=== PATIENT | male | born 2000 | race American Indian/Alaskan Native ===

== ENCOUNTER 2020-12-29 22:08 | Inpatient (IN) | payer SELFPAY ==
[2020-12-29] MEDS: LORazepam 2 MG/ML VIAL IV PRN ×2 (22:08→22:58)
[2020-12-29] MEDS ORDERED: SODIUM CHLORIDE 0.9% 1000 ML 1,000 ML IV ONE ×2 (22:18→22:25)
[2020-12-29] MEDS ORDERED: MINERAL OIL/PETROLATUM, WHITE OPHTH OINT 3.5 GM OU PRN (22:19)
[2020-12-29] MEDS ORDERED: LIP THERAPY VASELINE TP PRN (22:19)
--- NOTE | 2020-12-29 22:22 | Emergency Department Report ---
ED Altered Mental Status HPI - General Chief Complaint: Altered Mental Status Stated Complaint: UNRESPONSIVE PUI?: No Time Seen by Provider: 12/29/20 22:08 Source: EMS Mode of arrival: Stretcher Limitations: Altered Mental Status, Physical Limitation - History of Present Illness Initial Comments: Patient is a 20-year-old male presents emergency room for unresponsiveness and altered mental status. Patient found down at [facility]. Patient has been unresponsive. EMS brought the patient to the hospital. EMS report received. E MS states that the patient was given Narcan. Patient has been unresponsive the entire time. Patient had projectile vomiting and EMS gave the patient Zofran. EMS started an IV. Patient vascular history is unknown. MD Complaint: decreased responsiveness -: Sudden Severity: severe Consistency of Symptoms: constant Treatments Prior to Arrival: other pre-hosp med - Related Data Allergies Allergy/AdvReac Type Severity Reaction Status Date / Time No Known Allergies Allergy Unverified 12/30/20 05:25 ED Review of Systems ROS: Stated complaint: UNRESPONSIVE Other details as noted in HPI Comment: Unobtainable due to pts medical conditions ED Past Medical Hx - Past Medical History Previous Medical History?: No - Surgical History Past Surgical History?: No - Family History Family history: no significant - Social History Smoking Status: Unknown if ever smoked Substance Use Type: None ED Physical Exam - General Limitations: Altered Mental Status, Physical Limitation General appearance: obtunded - Head Head exam: Present: atraumatic, normocephalic - Eye Eye exam: Present: normal appearance, PERRL Pupils: Present: normal accommodation - ENT ENT exam: Present: mucous membranes dry - Neck Neck exam: Present: normal inspection - Respiratory Respiratory exam: Present: normal lung sounds bilaterally. Absent: respiratory distress, wheezes, rales - Cardiovascular Cardiovascular Exam: Present: regular rate, normal rhythm. Absent: systolic murmur, diastolic murmur, rubs, gallop - GI/Abdominal GI/Abdominal exam: Present: soft, normal bowel sounds - Rectal Rectal exam: Present: deferred - Extremities Exam Extremities exam: Present: normal inspection - Back Exam Back exam: Present: normal inspection - Neurological Exam Neurological exam: Present: altered - Expanded Neurological Exam Expanded Best Eye Response ([place]): (1) no response Best Motor Response ([place]): (1) no motor response Best Verbal Response ([place]): (1) no verbal response Diana Total: 3 - Skin Skin exam: Present: warm, dry, intact, normal color. Absent: rash - Assessment Assessment Interval: Baseline - Level of Consciousness 1a. Level of Consciousness: coma/unresponsive - LOC Questions 1b. LOC Questions: answers no questions correctly - LOC Command 1c. LOC Commands: performs no tasks correctly - Best Gaze 2. Best Gaze: normal - Visual 3. Visual: no visual loss - Facial Palsy 4. Facial Palsy: normal symmetrical movement - Motor Arm 5a. Motor Arm Left: no movement 5b. Motor Arm Right: no movement - Motor Leg 6a. Motor Leg Left: no movement 6b. Motor Leg Right: no movement - Limb Ataxia 7. Limb Ataxia: absent - Sensory 8. Sensory: coma/unresponsive - Best Language 9. Best Language: coma/unresponsive - Dysarthria 10. Dysarthria: intubated or other barrier - Extinction and Inattention 11. Extinction/Inattention: no abnormality - Scoring Total Score: 28 Stroke Severity: Severe Stroke ED Course Vital Signs 12/29/20 12/29/20 12/29/20 22:15 22:21 22:30 Temperature Pulse Rate 93 H 93 H Respiratory 22 Rate Blood Pressure 134/84 118/72 118/72 O2 Sat by Pulse 100 96 100 Oximetry 12/29/20 12/29/20 12/29/20 22:45 23:37 23:54 Temperature Pulse Rate 86 91 H 82 Respiratory 21 16 Rate Blood Pressure 133/92 98/46 133/92 O2 Sat by Pulse 100 100 Oximetry 12/30/20 12/30/20 12/30/20 00:00 00:15 00:30 Temperature Pulse Rate 85 64 59 L Respiratory 22 22 22 Rate Blood Pressure 138/92 136/94 136/94 O2 Sat by Pulse 100 100 100 Oximetry 12/30/20 12/30/20 12/30/20 00:45 01:00 01:16 Temperature Pulse Rate 58 L 55 L 77 Respiratory 21 21 13 Rate Blood Pressure 138/98 138/98 137/99 O2 Sat by Pulse 100 100 100 Oximetry 12/30/20 12/30/20 12/30/20 01:31 01:45 02:01 Temperature Pulse Rate 54 L 52 L 51 L Respiratory 13 17 18 Rate Blood Pressure 136/94 137/99 139/96 O2 Sat by Pulse 100 100 100 Oximetry 12/30/20 12/30/20 12/30/20 02:15 02:31 02:45 Temperature Pulse Rate 52 L 53 L 53 L Respiratory 22 21 22 Rate Blood Pressure 137/94 135/94 135/96 O2 Sat by Pulse 100 100 100 Oximetry 12/30/20 12/30/20 12/30/20 03:01 03:15 03:31 Temperature Pulse Rate 51 L 52 L 53 L Respiratory 19 22 21 Rate Blood Pressure 135/95 135/90 134/94 O2 Sat by Pulse 100 100 100 Oximetry 12/30/20 12/30/20 12/30/20 03:45 04:01 04:05 Temperature Pulse Rate 72 70 69 Respiratory 21 22 Rate Blood Pressure 135/91 121/67 121/67 O2 Sat by Pulse 100 100 100 Oximetry 12/30/20 12/30/20 12/30/20 04:15 04:31 04:45 Temperature Pulse Rate 66 65 64 Respiratory 22 21 22 Rate Blood Pressure 128/85 133/86 129/86 O2 Sat by Pulse 100 100 100 Oximetry 12/30/20 12/30/20 12/30/20 05:01 05:15 05:18 Temperature Pulse Rate 63 62 Respiratory 22 22 Rate Blood Pressure 127/82 127/87 O2 Sat by Pulse 100 100 100 Oximetry 12/30/20 12/30/20 12/30/20 05:31 05:45 05:49 Temperature 98.9 F Pulse Rate 61 61 77 Respiratory 22 21 Rate Blood Pressure 128/86 133/92 O2 Sat by Pulse 100 100 Oximetry - Reevaluation(s) Reevaluation #1: Report received from EMS. EMS is unresponsive and the patient's GCS is low. Patient will be intubated to protect the airway. See procedure note for intubation. 12/29/20 22:10 Reevaluation #2: Patient intubated without difficulty. 12/29/20 22:18 1 Reevaluation #3: Patient resting comfortably in bed. Patient stable on vent. Patient vital signs are reassuring. Patient has bilateral breath sounds. 12/29/20 22:38 Reevaluation #4: Patient still on ventilator. Patient on Ativan drip. Patient well sedated. Patient's vital signs are reassuring. 12/29/20 23:01 Reevaluation #5: I discussed the case with family. Family updated on the case. Mother and father states that the patient been having some mental issues. Mother states that the patient broke up with his girlfriend recently and also started cutting his wrist. 12/29/20 23:31 - Consultations Consultation #1: Hospitalist consulted for admission. Hospitalist to admit patient. 12/29/20 23:31 Consultation #2: Critical care consulted. 12/29/20 23:33 - Intubation Time Out Performed: Yes Sedative: Etomidate Paralytic: Rocuronium Laryngoscope: fiberoptic video scope Size: 4 Assist Device Used: fiberoptic device ET Tube Size: 7.5 Tube Secured Depth (cm): 22 Tube Secured Location: teeth Tube Placement Confirmation: visualized tube passing t, equal breath sounds bilat, no breath sounds over epi, confirmation by capnometr Patient Tolerated Procedure: well, no complications Intubation Complications: none - Lab Data Result diagrams: 12/29/20 22:22 12/29/20 22:22 Lab Results 12/29/20 12/29/20 12/29/20 Range/Units 22:22 22:22 22:22 WBC 8.2 (4.5-11.0) K/mm3 RBC 4.72 (3.65-5.03) M/mm3 Hgb 14.8 (11.8-15.2) gm/dl Hct 43.9 (35.5-45.6) % MCV 93 (84-94) fl MCH 31 (28-32) pg MCHC 34 (32-34) % RDW 12.7 L (13.2-15.2) % Plt Count 219 (140-440) K/mm3 Lymph % (Auto) 41.6 H (13.4-35.0) % Gaines % (Auto) 8.2 H (0.0-7.3) % Eos % (Auto) 2.0 (0.0-4.3) % Baso % (Auto) 0.8 (0.0-1.8) % Lymph # (Auto) 3.4 (1.2-5.4) K/mm3 Gaines # (Auto) 0.7 (0.0-0.8) K/mm3 Eos # (Auto) 0.2 (0.0-0.4) K/mm3 Baso # (Auto) 0.1 (0.0-0.1) K/mm3 Seg Neutrophils % 47.4 (40.0-70.0) % Seg Neutrophils # 3.9 (1.8-7.7) K/mm3 PT 14.0 (12.2-14.9) Sec. INR 0.97 (0.87-1.13) APTT 25.7 (24.2-36.6) Sec. ABG pH (7.350-7.450) pH Units ABG pCO2 mm Hg ABG pO2 (80.0-90.0) mm Hg ABG HCO3 (20.0-26.0) mmol/L ABG O2 Saturation (95.0-99.0) % ABG O2 Content (0.0-44) ABG Base Excess (-2.0-3.0) mmol/L ABG Hemoglobin (14.0-18.0) gm/dl ABG Carboxyhemoglobin (0.0-5.0) % ABG Methemoglobin (0.0-1.5) % Oxyhemoglobin (95.0-99.0) % FiO2 % Sodium 139 (137-145) mmol/L Potassium 3.6 (3.6-5.0) mmol/L Chloride 102.5 (98-107) mmol/L Carbon Dioxide 22 (22-30) mmol/L Anion Gap 18 mmol/L BUN 10 (9-20) mg/dL Creatinine 1.2 (0.8-1.3) mg/dL Estimated GFR > 60 ml/min BUN/Creatinine Ratio 8 % Glucose 149 H (75-100) mg/dL Lactic Acid (0.7-2.0) mmol/L Calcium 8.9 (8.4-10.2) mg/dL Total Bilirubin 0.30 (0.1-1.2) mg/dL AST 20 (5-40) units/L ALT 14 (7-56) units/L Alkaline Phosphatase 71 (35-129) units/L Ammonia (25-60) umol/L Total Creatine Kinase 235 H (55-170) units/L Troponin T < 0.010 (0.00-0.029) ng/mL Total Protein 7.3 (6.3-8.2) g/dL Albumin 4.4 (3.9-5) g/dL Albumin/Globulin Ratio 1.5 % Urine Color (Yellow) Urine Turbidity (Clear) Urine pH (5.0-7.0) Ur Specific [place] (1.003-1.030) Urine Protein (Negative) mg/dL Urine Glucose (UA) (Negative) mg/dL Urine Ketones (Negative) mg/dL Urine Blood (Negative) Urine Nitrite (Negative) Urine Bilirubin (Negative) Urine Urobilinogen (<2.0) mg/dL Ur Leukocyte Esterase (Negative) Urine WBC (Auto) (0.0-6.0) /HPF Urine RBC (Auto) (0.0-6.0) /HPF Urine Mucus /HPF Salicylates (2.8-20.0) mg/dL Urine Opiates Screen Urine Methadone Screen Acetaminophen (10.0-30.0) ug/mL Ur Barbiturates Screen Ur Phencyclidine Scrn Ur Amphetamines Screen U Benzodiazepines Scrn Urine Cocaine Screen U Marijuana (THC) Screen Drugs of Abuse Note Plasma/Serum Alcohol (0-0.07) % 12/29/20 12/29/20 12/29/20 Range/Units 22:22 22:22 22:22 WBC (4.5-11.0) K/mm3 RBC (3.65-5.03) M/mm3 Hgb (11.8-15.2) gm/dl Hct (35.5-45.6) % MCV (84-94) fl MCH (28-32) pg MCHC (32-34) % RDW (13.2-15.2) % Plt Count (140-440) K/mm3 Lymph % (Auto) (13.4-35.0) % Gaines % (Auto) (0.0-7.3) % Eos % (Auto) (0.0-4.3) % Baso % (Auto) (0.0-1.8) % Lymph # (Auto) (1.2-5.4) K/mm3 Gaines # (Auto) (0.0-0.8) K/mm3 Eos # (Auto) (0.0-0.4) K/mm3 Baso # (Auto) (0.0-0.1) K/mm3 Seg Neutrophils % (40.0-70.0) % Seg Neutrophils # (1.8-7.7) K/mm3 PT (12.2-14.9) Sec. INR (0.87-1.13) APTT (24.2-36.6) Sec. ABG pH (7.350-7.450) pH Units ABG pCO2 mm Hg ABG pO2 (80.0-90.0) mm Hg ABG HCO3 (20.0-26.0) mmol/L ABG O2 Saturation (95.0-99.0) % ABG O2 Content (0.0-44) ABG Base Excess (-2.0-3.0) mmol/L ABG Hemoglobin (14.0-18.0) gm/dl ABG Carboxyhemoglobin (0.0-5.0) % ABG Methemoglobin (0.0-1.5) % Oxyhemoglobin (95.0-99.0) % FiO2 % Sodium (137-145) mmol/L Potassium (3.6-5.0) mmol/L Chloride (98-107) mmol/L Carbon Dioxide (22-30) mmol/L Anion Gap mmol/L BUN (9-20) mg/dL Creatinine (0.8-1.3) mg/dL Estimated GFR ml/min BUN/Creatinine Ratio % Glucose (75-100) mg/dL Lactic Acid 3.20 H* (0.7-2.0) mmol/L Calcium (8.4-10.2) mg/dL Total Bilirubin (0.1-1.2) mg/dL AST (5-40) units/L ALT (7-56) units/L Alkaline Phosphatase (35-129) units/L Ammonia 36.0 (25-60) umol/L Total Creatine Kinase (55-170) units/L Troponin T (0.00-0.029) ng/mL Total Protein (6.3-8.2) g/dL Albumin (3.9-5) g/dL Albumin/Globulin Ratio % Urine Color (Yellow) Urine Turbidity (Clear) Urine pH (5.0-7.0) Ur Specific [place] (1.003-1.030) Urine Protein (Negative) mg/dL Urine Glucose (UA) (Negative) mg/dL Urine Ketones (Negative) mg/dL Urine Blood (Negative) Urine Nitrite (Negative) Urine Bilirubin (Negative) Urine Urobilinogen (<2.0) mg/dL Ur Leukocyte Esterase (Negative) Urine WBC (Auto) (0.0-6.0) /HPF Urine RBC (Auto) (0.0-6.0) /HPF Urine Mucus /HPF Salicylates < 0.3 L (2.8-20.0) mg/dL Urine Opiates Screen Urine Methadone Screen Acetaminophen (10.0-30.0) ug/mL Ur Barbiturates Screen Ur Phencyclidine Scrn Ur Amphetamines Screen U Benzodiazepines Scrn Urine Cocaine Screen U Marijuana (THC) Screen Drugs of Abuse Note Plasma/Serum Alcohol (0-0.07) % 12/29/20 12/29/20 12/29/20 Range/Units 22:22 22:22 22:55 WBC (4.5-11.0) K/mm3 RBC (3.65-5.03) M/mm3 Hgb (11.8-15.2) gm/dl Hct (35.5-45.6) % MCV (84-94) fl MCH (28-32) pg MCHC (32-34) % RDW (13.2-15.2) % Plt Count (140-440) K/mm3 Lymph % (Auto) (13.4-35.0) % Gaines % (Auto) (0.0-7.3) % Eos % (Auto) (0.0-4.3) % Baso % (Auto) (0.0-1.8) % Lymph # (Auto) (1.2-5.4) K/mm3 Gaines # (Auto) (0.0-0.8) K/mm3 Eos # (Auto) (0.0-0.4) K/mm3 Baso # (Auto) (0.0-0.1) K/mm3 Seg Neutrophils % (40.0-70.0) % Seg Neutrophils # (1.8-7.7) K/mm3 PT (12.2-14.9) Sec. INR (0.87-1.13) APTT (24.2-36.6) Sec. ABG pH (7.350-7.450) pH Units ABG pCO2 mm Hg ABG pO2 (80.0-90.0) mm Hg ABG HCO3 (20.0-26.0) mmol/L ABG O2 Saturation (95.0-99.0) % ABG O2 Content (0.0-44) ABG Base Excess (-2.0-3.0) mmol/L ABG Hemoglobin (14.0-18.0) gm/dl ABG Carboxyhemoglobin (0.0-5.0) % ABG Methemoglobin (0.0-1.5) % Oxyhemoglobin (95.0-99.0) % FiO2 % Sodium (137-145) mmol/L Potassium (3.6-5.0) mmol/L Chloride (98-107) mmol/L Carbon Dioxide (22-30) mmol/L Anion Gap mmol/L BUN (9-20) mg/dL Creatinine (0.8-1.3) mg/dL Estimated GFR ml/min BUN/Creatinine Ratio % Glucose (75-100) mg/dL Lactic Acid (0.7-2.0) mmol/L Calcium (8.4-10.2) mg/dL Total Bilirubin (0.1-1.2) mg/dL AST (5-40) units/L ALT (7-56) units/L Alkaline Phosphatase (35-129) units/L Ammonia (25-60) umol/L Total Creatine Kinase (55-170) units/L Troponin T (0.00-0.029) ng/mL Total Protein (6.3-8.2) g/dL Albumin (3.9-5) g/dL Albumin/Globulin Ratio % Urine Color (Yellow) Urine Turbidity (Clear) Urine pH (5.0-7.0) Ur Specific [place] (1.003-1.030) Urine Protein (Negative) mg/dL Urine Glucose (UA) (Negative) mg/dL Urine Ketones (Negative) mg/dL Urine Blood (Negative) Urine Nitrite (Negative) Urine Bilirubin (Negative) Urine Urobilinogen (<2.0) mg/dL Ur Leukocyte Esterase (Negative) Urine WBC (Auto) (0.0-6.0) /HPF Urine RBC (Auto) (0.0-6.0) /HPF Urine Mucus /HPF Salicylates (2.8-20.0) mg/dL Urine Opiates Screen Presumptive negative Urine Methadone Screen Presumptive negative Acetaminophen 5.0 L (10.0-30.0) ug/mL Ur Barbiturates Screen Presumptive negative Ur Phencyclidine Scrn Presumptive negative Ur Amphetamines Screen Presumptive negative U Benzodiazepines Scrn Presumptive negative Urine Cocaine Screen Presumptive negative U Marijuana (THC) Screen Presumptive positive Drugs of Abuse Note Disclamer Plasma/Serum Alcohol < 0.01 (0-0.07) % 12/29/20 12/29/20 12/29/20 Range/Units 23:45 23:46 Unknown WBC (4.5-11.0) K/mm3 RBC (3.65-5.03) M/mm3 Hgb (11.8-15.2) gm/dl Hct (35.5-45.6) % MCV (84-94) fl MCH (28-32) pg MCHC (32-34) % RDW (13.2-15.2) % Plt Count (140-440) K/mm3 Lymph % (Auto) (13.4-35.0) % Gaines % (Auto) (0.0-7.3) % Eos % (Auto) (0.0-4.3) % Baso % (Auto) (0.0-1.8) % Lymph # (Auto) (1.2-5.4) K/mm3 Gaines # (Auto) (0.0-0.8) K/mm3 Eos # (Auto) (0.0-0.4) K/mm3 Baso # (Auto) (0.0-0.1) K/mm3 Seg Neutrophils % (40.0-70.0) % Seg Neutrophils # (1.8-7.7) K/mm3 PT (12.2-14.9) Sec. INR (0.87-1.13) APTT (24.2-36.6) Sec. ABG pH 7.454 H (7.350-7.450) pH Units ABG pCO2 29.9 mm Hg ABG pO2 257.0 H (80.0-90.0) mm Hg ABG HCO3 20.5 (20.0-26.0) mmol/L ABG O2 Saturation 99.4 H (95.0-99.0) % ABG O2 Content 18.8 (0.0-44) ABG Base Excess -2.4 L (-2.0-3.0) mmol/L ABG Hemoglobin 13.2 L (14.0-18.0) gm/dl ABG Carboxyhemoglobin 0.9 (0.0-5.0) % ABG Methemoglobin 0.7 (0.0-1.5) % Oxyhemoglobin 97.8 (95.0-99.0) % FiO2 30 % Sodium (137-145) mmol/L Potassium (3.6-5.0) mmol/L Chloride (98-107) mmol/L Carbon Dioxide (22-30) mmol/L Anion Gap mmol/L BUN (9-20) mg/dL Creatinine (0.8-1.3) mg/dL Estimated GFR ml/min BUN/Creatinine Ratio % Glucose (75-100) mg/dL Lactic Acid 4.60 H* (0.7-2.0) mmol/L Calcium (8.4-10.2) mg/dL Total Bilirubin (0.1-1.2) mg/dL AST (5-40) units/L ALT (7-56) units/L Alkaline Phosphatase (35-129) units/L Ammonia (25-60) umol/L Total Creatine Kinase (55-170) units/L Troponin T (0.00-0.029) ng/mL Total Protein (6.3-8.2) g/dL Albumin (3.9-5) g/dL Albumin/Globulin Ratio % Urine Color Yellow (Yellow) Urine Turbidity Clear (Clear) Urine pH 6.0 (5.0-7.0) Ur Specific [place] 1.025 (1.003-1.030) Urine Protein <15 mg/dl (Negative) mg/dL Urine Glucose (UA) Neg (Negative) mg/dL Urine Ketones Neg (Negative) mg/dL Urine Blood Neg (Negative) Urine Nitrite Neg (Negative) Urine Bilirubin Neg (Negative) Urine Urobilinogen 4.0 (<2.0) mg/dL Ur Leukocyte Esterase Neg (Negative) Urine WBC (Auto) < 1.0 (0.0-6.0) /HPF Urine RBC (Auto) 1.0 (0.0-6.0) /HPF Urine Mucus Few /HPF Salicylates (2.8-20.0) mg/dL Urine Opiates Screen Urine Methadone Screen Acetaminophen (10.0-30.0) ug/mL Ur Barbiturates Screen Ur Phencyclidine Scrn Ur Amphetamines Screen U Benzodiazepines Scrn Urine Cocaine Screen U Marijuana (THC) Screen Drugs of Abuse Note Plasma/Serum Alcohol (0-0.07) % - EKG Data -: EKG Interpreted by Me EKG shows normal: sinus rhythm, axis, intervals, QRS complexes, ST-T waves Rate: normal - Radiology Data Radiology results: report reviewed, image reviewed interpreted by me: Chest x-ray: No pneumonia, no pneumothorax, no osseous findings, ET tube in satisfactory position. CHEST 1 VIEW 12/29/2020 9:38 PM INDICATION / CLINICAL INFORMATION: ETT placement. COMPARISON: None available. FINDINGS: SUPPORT DEVICES: ET tube has tip 6 cm above mery HEART / MEDIASTINUM: No significant abnormality. LUNGS / PLEURA: No significant pulmonary or pleural abnormality. No pneumothorax. ADDITIONAL FINDINGS: No significant additional findings. IMPRESSION: 1. No acute findings. CT HEAD WITHOUT CONTRAST INDICATION / CLINICAL INFORMATION: Altered Mental Status. TECHNIQUE: All CT scans at this location are performed using CT dose reduction for ALARA by means of automated exposure control. COMPARISON: None available. FINDINGS: HEMORRHAGE: None. EXTRA-AXIAL SPACES: Normal in size and morphology for the patient's age. VENTRICULAR SYSTEM: Normal in size and morphology for the patient's age. CEREBRAL PARENCHYMA: No significant abnormality. No acute territorial infarct. MIDLINE SHIFT OR HERNIATION: None. CEREBELLUM / BRAINSTEM: No significant abnormality. ORBITS: Normal as visualized. SOFT TISSUES of HEAD: No significant abnormality. CALVARIUM: No significant abnormality. PARANASAL SINUSES / MASTOID AIR CELLS: Normal as visualized. ADDITIONAL FINDINGS: None. IMPRESSION: 1. No acute intracranial abnormality. - Medical Decision Making Patient is a 20-year-old male who presents emergency room for altered mental status and possible overdose. Patient brought in by EMS. Patient was given Narcan by EMS with no response. Patient had projectile vomiting with EMS and given Zofran. Patient's GCS was 3 on initial evaluation. Patient was intubated to protect the patient's airway and oxygen support. See procedure note. Patient was intubated without difficulty. Patient was intubated with 1 attempt. Patient had labs done. Patient had a chest x-ray done. Patient chest x-ray shows normal lung corona and ET tube in satisfactory position. I personally reviewed the EKG. Patient had a chest x-ray which was normal and shows no acute findings. Patient's EKG shows a normal sinus rhythm. I personally reviewed the EKG. Patient's labs are essentially unremarkable. Patient given IV fluids after initial evaluation. Patient is afebrile and non-tachycardic. Patient placed on a Ativan drip after intubation. Patient had a head CT for altered mental status. Patient's head CT was negative for acute findings. Patient admitted to the hospital service for further evaluation and treatment. Patient admitted to the ICU. Critical care time documented due to the multiple reassessments, prolonged time at the bedside, interpretation of diagnostics and labs. - Differential Diagnosis Overdose, altered mental status, intracranial hemorrhage, Critical Care Time: Yes Critical care time in (mins) excluding proc time.: 45 Critical care attestation.: If time is entered above; I have spent that time in minutes in the direct care of this critically ill patient, excluding procedure time. Critical Care Time: 45 minutes ED Disposition Clinical Impression: Unresponsiveness, Lactic acid acidosis Respiratory failure Qualifiers: Chronicity: acute Respiratory failure complication: hypoxia Qualified Code(s): J96.01 - Acute respiratory failure with hypoxia Altered mental status Qualifiers: Altered mental status type: unspecified Qualified Code(s): R41.82 - Altered mental status, unspecified Disposition: ADMITTED INPATIENT Is pt being admited?: Yes Does the pt Need Aspirin: No Condition: Critical Time of Disposition: 00:14
[2020-12-29 22:32] LABS: Basophils # (Auto) 0.1 K/mm3 (0.0-0.1); Basophils % (Auto) 0.8 % (0.0-1.8); Eosinophils # (Auto) 0.2 K/mm3 (0.0-0.4); Hematocrit 43.9 % (35.5-45.6); Hemoglobin 14.8 gm/dl (11.8-15.2); Lymphocytes # (Auto) 3.4 K/mm3 (1.2-5.4); Lymphocytes % (Auto) 41.6 % (13.4-35.0); Mean Corpuscular HGB Conc 34 % (32-34); Mean Corpuscular Volume 93 fl (84-94); Monocytes # (Auto) 0.7 K/mm3 (0.0-0.8); Monocytes % (Auto) 8.2 % (0.0-7.3); Platelet Count 219 K/mm3 (140-440); Red Blood Count 4.72 M/mm3 (3.65-5.03); Red Cell Distribution Width 12.7 % (13.2-15.2)
[2020-12-29 22:43] LABS: INR 0.97 (0.87-1.13)
[2020-12-29 22:44] LABS: Partial Thromboplastin Time 25.7 Sec. (24.2-36.6)
--- NOTE | 2020-12-29 22:44 | XRay Report ---
CHEST 1 VIEW 12/29/2020 9:38 PM INDICATION / CLINICAL INFORMATION: ETT placement. COMPARISON: None available. FINDINGS: SUPPORT DEVICES: ET tube has tip 6 cm above mery HEART / MEDIASTINUM: No significant abnormality. LUNGS / PLEURA: No significant pulmonary or pleural abnormality. No pneumothorax. ADDITIONAL FINDINGS: No significant additional findings. IMPRESSION: 1. No acute findings. Signer Name: Manuel Costa MD Signed: 12/29/2020 10:40 PM Workstation Name: [id number]
[2020-12-29 22:58] LABS: Alanine Aminotransferase 14 units/L (7-56); Albumin 4.4 g/dL (3.9-5); BUN/Creatinine Ratio 8; Blood Urea Nitrogen 10 mg/dL (9-20); Calcium 8.9 mg/dL (8.4-10.2); Hemolysis Index 19
[2020-12-29] MEDS ORDERED: LORazepam 100 MG in SODIUM CHLORIDE 0.9% 50 ML, EMPTY BAG 0 ML IV SCH (23:00)
[2020-12-29 23:04] LABS: Bilirubin,Urine NEG (Negative); Blood,Urine NEG (Negative); Color,Urine Yellow (Yellow); Mucus,Urine FEW /HPF; Protein,Urine <15 mg/dL mg/dL (Negative); WBC,Urine < 1.0 /HPF (0.0-6.0)
[2020-12-29 23:12] LABS: Amphetamine Screen,Urine PRESUMPTIVE NEGATIVE; Benzodiazepines Screen,Urine PRESUMPTIVE NEGATIVE; Cannabinoid Screen,Urine PRESUMPTIVE POSITIVE; Cocaine Screen,Urine PRESUMPTIVE NEGATIVE; Methadone Screen,Urine PRESUMPTIVE NEGATIVE; Opiate Screen,Urine PRESUMPTIVE NEGATIVE
--- NOTE | 2020-12-29 23:32 | Cat Scan Report ---
CT HEAD WITHOUT CONTRAST INDICATION / CLINICAL INFORMATION: Altered Mental Status. TECHNIQUE: All CT scans at this location are performed using CT dose reduction for ALARA by means of automated e xposure control. COMPARISON: None available. FINDINGS: HEMORRHAGE: None. EXTRA-AXIAL SPACES: Normal in size and morphology for the patient's age. VENTRICULAR SYSTEM: Normal in size and morphology for the patient's age. CEREBRAL PARENCHYMA: No significant abnormality. No acute territorial infarct. MIDLINE SHIFT OR HERNIATION: None. CEREBELLUM / BRAINSTEM: No significant abnormality. ORBITS: Normal as visualized. SOFT TISSUES of HEAD: No significant abnormality. CALVARIUM: No significant abnormality. PARANASAL SINUSES / MASTOID AIR CELLS: Normal as visualized. ADDITIONAL FINDINGS: None. IMPRESSION: 1. No acute intracranial abnormality. Signer Name: Manuel Costa MD Signed: 12/29/2020 11:28 PM Workstation Name: [id number]
[2020-12-29 23:58] LABS: ABG Base Excess -2.4 mmol/L (-2.0-3.0); ABG HCO3 20.5 mmol/L (20.0-26.0); ABG Methemoglobin 0.7 % (0.0-1.5); ABG Oxygen Saturation 99.4 % (95.0-99.0); ABG PCO2 29.9 mm Hg; ABG PH 7.454 pH Units (7.350-7.450)
[2020-12-30] MEDS ORDERED: ROCURONIUM 50 MG/5 ML INJ IV ONE (00:24)
[2020-12-30] MEDS ORDERED: ETOMIDATE 20 MG/10 ML INJ IV ONE (00:24)
[2020-12-30] MEDS ORDERED: MIDAZOLAM 5 MG/5 ML INJ MDV IV ONE (00:24)
[2020-12-30] MEDS ORDERED: ACETAMINOPHEN 650 MG RECT SUPP PR PRN (01:11)
[2020-12-30] MEDS ORDERED: MAGNESIUM HYDROXIDE (MOM) ORAL LIQD UDC PO PRN (01:11)
[2020-12-30] MEDS ORDERED: MORPHINE 2 MG/1 ML INJ IV PRN (01:11)
[2020-12-30] MEDS ORDERED: MORPHINE 4 MG/1 ML INJ IV PRN (01:11)
--- NOTE | 2020-12-30 01:21 | History and Physical Report ---
History of Present Illness Date of examination: 12/30/20 Date of admission: 12/30/2020 Chief complaint: Altered mental status History of present illness: 20-year-old -Cub[place] male brought into the emergency room by EMS for unresponsiveness and altered mental status having been found down at the [facility]. Patient was said to have been given some Narcan in route to the hospital without any good response. He was said to have had some projectile vomiting and was given Zofran. Most of the history was gotten from the ER staff as family has patient had already been intubated. Information later gathered from family by ER statff indicates that patient has known history of depression and also had some suicidal ideations lately. Work-up in the emergency room today toxicology reveals marijuana. Chemistry reveals lactic acidosis of 4.6 CT scan of the head and chest x-ray were unremarkable. Past History Past Medical History: other (History of mental illness) Past Surgical History: Other (Unknown) Social history: other (Unknown) Medications and Allergies Allergies Allergy/AdvReac Type Severity Reaction Status Date / Time No Known Allergies Allergy Unverified 12/30/20 05:25 Active Meds: Active Medications Acetaminophen (Acetaminophen 650 Mg Rect Supp) 650 mg DC Q6H PRN PRN Reason: Pain MILD(1-3)/Fever >100.5/CHAVARRIA Heparin Sodium (Porcine) (Heparin 5,000 Unit/1 Ml Vial) 5,000 unit SUB-Q Q8HR LUZ Hydrophilic Ointment (Lip Therapy Vaseline) 1 applic TP Q2HR PRN PRN Reason: Dry Lips Lorazepam 100 mg/ Sodium Chloride/ Miscellaneous Information 100 mls @ 1 mls/hr IV TITR LUZ; Protocol Last Admin: 12/29/20 23:10 Dose: 1 mg/hr, 1 mls/hr Documented by: Propofol (Diprivan 10 Mg/Ml) 1,000 mg in 100 mls @ 2.34 mls/hr IV TITR LUZ; Protocol Last Admin: 12/29/20 23:55 Dose: 5 mcg/kg/min, 2.34 mls/hr Documented by: Sodium Chloride (Nacl 0.9% 1000 Ml) 1,000 mls @ 125 mls/hr IV DIRECT LUZ Lorazepam (Lorazepam 2 Mg/Ml Vial) 2 mg IV Q10MIN PRN PRN Reason: Agitation Last Admin: 12/29/20 22:08 Dose: 2 mg Documented by: Magnesium Hydroxide (Magnesium Hydroxide (Mom) Oral Liqd Udc) 30 ml PO Q4H PRN PRN Reason: Constipation Morphine Sulfate (Morphine 2 Mg/1 Ml Inj) 2 mg IV Q4H PRN PRN Reason: Pain, Moderate (4-6) Morphine Sulfate (Morphine 4 Mg/1 Ml Inj) 4 mg IV Q4H PRN PRN Reason: Pain , Severe (7-10) Multi-Ingred Cream/Lotion/Oil/Oint (Mineral Oil/Petrolatum, White Ophth Oint 3.5 Gm) 1 applic OU Q4HR PRN PRN Reason: Dry Eye(s) Sodium Chloride (Sodium Chloride 0.9% 10 Ml Flush Syringe) 10 ml IV BID LUZ Sodium Chloride (Sodium Chloride 0.9% 10 Ml Flush Syringe) 10 ml IV PRN PRN PRN Reason: LINE FLUSH Review of Systems ROS unobtainable: due to endotracheal tube Exam - Constitutional Vitals: Temp Pulse Resp BP Pulse Ox 91 H 98/46 100 12/29/20 23:37 12/29/20 23:37 12/29/20 23:37 General appearance: Present: well-nourished, other (Currently intubated and sedated) - EENT Eyes: Present: PERRL, EOM intact. Absent: scleral icterus ENT: hearing intact, clear oral mucosa, dentition normal - Neck Neck: Present: supple, normal ROM - Respiratory Respiratory effort: normal Respiratory: bilateral: CTA - Cardiovascular Rhythm: regular Heart Sounds: Present: S1 & S2. Absent: gallop, systolic murmur, diastolic murmur, rub, click - Extremities Extremities: no ischemia, pulses intact, pulses symmetrical, No edema, normal temperature, normal color, Full ROM Peripheral Pulses: within normal limits - Abdominal General gastrointestinal: Present: soft, non-tender, non-distended, normal bowel sounds. Absent: mass - Integumentary Integumentary: Present: clear, warm, dry, normal turgor. Absent: rash - Musculoskeletal Musculoskeletal: strength equal bilaterally - Psychiatric Psychiatric: cooperative - Neurologic Neurologic: CNII-XII intact, no focal deficits, moves all extremities, other (Currently intubated) HEART Score - HEART Score Troponin: Troponin T < 0.010 ng/mL (0.00-0.029) 12/29/20 22:22 Results - Labs CBC & Chem 7: 12/29/20 22:22 12/29/20 22:22 Labs: Abnormal lab results 12/29/20 12/29/20 12/29/20 Range/Units 22:22 22:22 22:22 RDW 12.7 L (13.2-15.2) % Lymph % (Auto) 41.6 H (13.4-35.0) % [place] % (Auto) 8.2 H (0.0-7.3) % ABG pH (7.350-7.450) pH Units ABG pO2 (80.0-90.0) mm Hg ABG O2 Saturation (95.0-99.0) % ABG Base Excess (-2.0-3.0) mmol/L ABG Hemoglobin (14.0-18.0) gm/dl Glucose 149 H (75-100) mg/dL Lactic Acid 3.20 H* (0.7-2.0) mmol/L Total Creatine Kinase 235 H (55-170) units/L Salicylates (2.8-20.0) mg/dL Acetaminophen (10.0-30.0) ug/mL 12/29/20 12/29/20 12/29/20 Range/Units 22:22 22:22 23:45 RDW (13.2-15.2) % Lymph % (Auto) (13.4-35.0) % [place] % (Auto) (0.0-7.3) % ABG pH 7.454 H (7.350-7.450) pH Units ABG pO2 257.0 H (80.0-90.0) mm Hg ABG O2 Saturation 99.4 H (95.0-99.0) % ABG Base Excess -2.4 L (-2.0-3.0) mmol/L ABG Hemoglobin 13.2 L (14.0-18.0) gm/dl Glucose (75-100) mg/dL Lactic Acid (0.7-2.0) mmol/L Total Creatine Kinase (55-170) units/L Salicylates < 0.3 L (2.8-20.0) mg/dL Acetaminophen 5.0 L (10.0-30.0) ug/mL 12/29/20 Range/Units 23:46 RDW (13.2-15.2) % Lymph % (Auto) (13.4-35.0) % [place] % (Auto) (0.0-7.3) % ABG pH (7.350-7.450) pH Units ABG pO2 (80.0-90.0) mm Hg ABG O2 Saturation (95.0-99.0) % ABG Base Excess (-2.0-3.0) mmol/L ABG Hemoglobin (14.0-18.0) gm/dl Glucose (75-100) mg/dL Lactic Acid 4.60 H* (0.7-2.0) mmol/L Total Creatine Kinase (55-170) units/L Salicylates (2.8-20.0) mg/dL Acetaminophen (10.0-30.0) ug/mL Assessment and Plan - Patient Problems (1) Respiratory failure Current Visit: Yes Status: Acute Qualifiers: Chronicity: acute Respiratory failure complication: hypoxia Qualified Code(s): J96.01 - Acute respiratory failure with hypoxia Plan to address problem: Etiology unclear. Patient currently intubated and sedated. We await further evaluation by coordinator of genetic services. (2) Depression with suicidal ideation Current Visit: Yes Status: Acute Plan to address problem: Consult placed to mental health for evaluation. (3) Lactic acid acidosis Current Visit: Yes Status: Acute Plan to address problem: Patient placed on IV fluid. No obvious source of infection at this time. Will monitor chemistry. (4) Encephalopathy Current Visit: Yes Status: Acute Plan to address problem: Rule out metabolic or infectious process (5) DVT prophylaxis Current Visit: Yes Status: Acute Plan to address problem: Patient placed on subcutaneous heparin. (6) Full code status Current Visit: Yes Status: Acute Plan to address problem: Patient is full code.
[2020-12-30 04:41] LABS: ABG Base Excess -2.2 mmol/L (-2.0-3.0); ABG HCO3 20.2 mmol/L (20.0-26.0); ABG Methemoglobin 0.6 % (0.0-1.5); ABG Oxygen Saturation 99.2 % (95.0-99.0); ABG PCO2 28.5 mm Hg; ABG PH 7.468 pH Units (7.350-7.450); ABG PO2 173.3 mm Hg (80.0-90.0)
[2020-12-30] MEDS: HEPARIN 5,000 UNIT/1 ML VIAL SUB-Q SCH ×4 (05:37→21:40)
--- NOTE | 2020-12-30 11:57 | Event Note ---
Date: 12/30/20 Attempted to evaluate the patient. He is intubated and sedated.
--- NOTE | 2020-12-30 13:17 | Consultation ---
History of Present Illness Consult date: 12/30/20 Requesting physician: AARON DEXTER Reason for consult: other (Acute Hypoxemic Respiratory Failure on MVS) History of present illness: PCCM CONSULT NOTE (Full dictation # [id number]) Please see dictated notes for full details Past History Past Medical History: other (History of mental illness) Past Surgical History: Other (Unknown) Social history: other (Unknown) Medications and Allergies Allergies Allergy/AdvReac Type Severity Reaction Status Date / Time No Known Allergies Allergy Unverified 12/30/20 05:25 Active Meds: Active Medications Acetaminophen (Acetaminophen 650 Mg Rect Supp) 650 mg MN Q6H PRN PRN Reason: Pain MILD(1-3)/Fever >100.5/[place] Heparin Sodium (Porcine) (Heparin 5,000 Unit/1 Ml Vial) 5,000 unit SUB-Q Q8HR LUZ Last Admin: 12/30/20 06:30 Dose: 5,000 unit Documented by: Hydrophilic Ointment (Lip Therapy Vaseline) 1 applic TP Q2HR PRN PRN Reason: Dry Lips Last Admin: 12/30/20 05:32 Dose: 1 applic Documented by: Lorazepam 100 mg/ Sodium Chloride/ Miscellaneous Information 100 mls @ 1 mls/hr IV TITR LUZ; Protocol Last Admin: 12/29/20 23:10 Dose: 1 mg/hr, 1 mls/hr Documented by: Propofol (Diprivan 10 Mg/Ml) 1,000 mg in 100 mls @ 2.34 mls/hr IV TITR LUZ; Protocol Last Admin: 12/29/20 23:55 Dose: 5 mcg/kg/min, 2.34 mls/hr Documented by: Sodium Chloride (Nacl 0.9% 1000 Ml) 1,000 mls @ 125 mls/hr IV DIRECT LUZ Lorazepam (Lorazepam 2 Mg/Ml Vial) 2 mg IV Q10MIN PRN PRN Reason: Agitation Last Admin: 12/29/20 22:58 Dose: 2 mg Documented by: Magnesium Hydroxide (Magnesium Hydroxide (Mom) Oral Liqd Udc) 30 ml PO Q4H PRN PRN Reason: Constipation Morphine Sulfate (Morphine 2 Mg/1 Ml Inj) 2 mg IV Q4H PRN PRN Reason: Pain, Moderate (4-6) Morphine Sulfate (Morphine 4 Mg/1 Ml Inj) 4 mg IV Q4H PRN PRN Reason: Pain , Severe (7-10) Multi-Ingred Cream/Lotion/Oil/Oint (Mineral Oil/Petrolatum, White Ophth Oint 3.5 Gm) 1 applic OU Q4HR PRN PRN Reason: Dry Eye(s) Sodium Chloride (Sodium Chloride 0.9% 10 Ml Flush Syringe) 10 ml IV BID LUZ Sodium Chloride (Sodium Chloride 0.9% 10 Ml Flush Syringe) 10 ml IV PRN PRN PRN Reason: LINE FLUSH Physical Examination Vital signs: Vital Signs Pulse BP Pulse Ox 93 H 134/84 100 12/29/20 22:15 12/29/20 22:15 12/29/20 22:15 Results - Laboratory Findings CBC and BMP: 12/29/20 22:22 12/29/20 22:22 ABG ABG pH 7.468 pH Units (7.350-7.450) H 12/30/20 04:05 ABG pCO2 28.5 mm Hg 12/30/20 04:05 ABG pO2 173.3 mm Hg (80.0-90.0) H 12/30/20 04:05 ABG O2 Saturation 99.2 % (95.0-99.0) H 12/30/20 04:05 PT/INR, D-dimer PT 14.0 Sec. (12.2-14.9) 12/29/20 22:22 INR 0.97 (0.87-1.13) 12/29/20 22:22 Abnormal lab findings: Abnormal Labs 12/29/20 12/29/20 12/29/20 22:22 22:22 22:22 RDW 12.7 L Lymph % (Auto) 41.6 H [place] % (Auto) 8.2 H ABG pH ABG pO2 ABG O2 Saturation ABG Base Excess ABG Hemoglobin Glucose 149 H Lactic Acid 3.20 H* Total Creatine Kinase 235 H Salicylates Acetaminophen 12/29/20 12/29/20 12/29/20 22:22 22:22 23:45 RDW Lymph % (Auto) [place] % (Auto) ABG pH 7.454 H ABG pO2 257.0 H ABG O2 Saturation 99.4 H ABG Base Excess -2.4 L ABG Hemoglobin 13.2 L Glucose Lactic Acid Total Creatine Kinase Salicylates < 0.3 L Acetaminophen 5.0 L 12/29/20 12/30/20 12/30/20 23:46 03:33 04:05 RDW Lymph % (Auto) [place] % (Auto) ABG pH 7.468 H ABG pO2 173.3 H ABG O2 Saturation 99.2 H ABG Base Excess -2.2 L ABG Hemoglobin Glucose Lactic Acid 4.60 H* 3.20 H* Total Creatine Kinase Salicylates Acetaminophen
--- NOTE | 2020-12-30 13:43 | Event Note ---
Date: 12/30/20 Patient examined by me this morning. Chart was also reviewed. Patient remains mechanically intubated currently on 8 of diprivan. Lactic acidosis has resolved. Critical care to evaluate for possible extubation.
[2020-12-30 14:02] LABS: ABG Base Excess -1.6 mmol/L (-2.0-3.0); ABG HCO3 23.4 mmol/L (20.0-26.0); ABG Methemoglobin 0.8 % (0.0-1.5); ABG Oxygen Saturation 98.8 % (95.0-99.0); ABG PCO2 40.7 mm Hg; ABG PH 7.378 pH Units (7.350-7.450)
[2020-12-30] MEDS ORDERED: SODIUM BICARBONATE 325 MG TAB FEEDTUBE PRN (15:18)
[2020-12-30] MEDS ORDERED: LIPASE 10,500/PROTEASE 25,000/AMYLASE 43,750 (UNITS) DR CAP FEEDTUBE PRN (15:18)
[2020-12-30] MEDS ORDERED: SIMPLE SYRUP 15 ML FEEDTUBE PRN ×2 (15:18)
--- NOTE | 2020-12-30 15:25 | Consultation ---
History of Present Illness Consult date: 12/30/20 Reason for Consult: Alteed Mental Status Chief complaint: Unresponsive History of present illness: 20 yo male with possible depression, presents where he was found unresponsive and down at [facility]. Per EMR, the patient has been cutting his wrist lately and just broke up with his girlfriend. He was intubated emergently in the ED. Per RN, no clinical seizure activity noted. Past History Past Medical History: other (History of mental illness) Past Surgical History: Other (Unknown) Social history: other (Unknown) Medications and Allergies Allergies Allergy/AdvReac Type Severity Reaction Status Date / Time No Known Allergies Allergy Unverified 12/30/20 05:25 Active Meds: Active Medications Acetaminophen (Acetaminophen 650 Mg Rect Supp) 650 mg OR Q6H PRN PRN Reason: Pain MILD(1-3)/Fever >100.5/[place]AVAR[place] Famotidine (Famotidine 20 Mg/2 Ml Inj) 20 mg IV BID LUZ Fentanyl (Fentanyl 100 Mcg/2 Ml Inj) 50 mcg IV Q10MIN PRN PRN Reason: ANALGESIA Heparin Sodium (Porcine) (Heparin 5,000 Unit/1 Ml Vial) 5,000 unit SUB-Q Q8HR LUZ Last Admin: 12/30/20 06:30 Dose: 5,000 unit Documented by: Hydrophilic Ointment (Lip Therapy Vaseline) 1 applic TP Q2HR PRN PRN Reason: Dry Lips Last Admin: 12/30/20 05:32 Dose: 1 applic Documented by: Propofol (Diprivan 10 Mg/Ml) 1,000 mg in 100 mls @ 2.34 mls/hr IV TITR LUZ; Protocol Last Admin: 12/29/20 23:55 Dose: 5 mcg/kg/min, 2.34 mls/hr Documented by: Sodium Chloride (Nacl 0.9% 1000 Ml) 1,000 mls @ 125 mls/hr IV DIRECT LUZ Fentanyl Citrate (Fentanyl Drip Premix) 2,000 mcg in 100 mls @ 3.9 mls/hr IV TITR LUZ; Protocol Lorazepam (Lorazepam 2 Mg/Ml Vial) 2 mg IV Q10MIN PRN PRN Reason: Agitation Last Admin: 12/29/20 22:58 Dose: 2 mg Documented by: Magnesium Hydroxide (Magnesium Hydroxide (Mom) Oral Liqd Udc) 30 ml PO Q4H PRN PRN Reason: Constipation Morphine Sulfate (Morphine 2 Mg/1 Ml Inj) 2 mg IV Q4H PRN PRN Reason: Pain, Moderate (4-6) Morphine Sulfate (Morphine 4 Mg/1 Ml Inj) 4 mg IV Q4H PRN PRN Reason: Pain , Severe (7-10) Multi-Ingred Cream/Lotion/Oil/Oint (Mineral Oil/Petrolatum, White Ophth Oint 3.5 Gm) 1 applic OU Q4HR PRN PRN Reason: Dry Eye(s) Senna/Docusate Sodium (Sennosides/Docusate Sodium 8.6/50 Mg Tab) 1 tab FEEDTUBE BID LUZ Sodium Chloride (Sodium Chloride 0.9% 10 Ml Flush Syringe) 10 ml IV BID LUZ Sodium Chloride (Sodium Chloride 0.9% 10 Ml Flush Syringe) 10 ml IV PRN PRN PRN Reason: LINE FLUSH Review of Systems ROS unobtainable: due to mental status Physical Examination - Vital Signs Vital Signs: Vital Signs Pulse BP Pulse Ox 93 H 134/84 100 12/29/20 22:15 12/29/20 22:15 12/29/20 22:15 - Physical Exam Narrative exam: Gen: nad, well-nourished, intubated; Head: normocephalic; Eyes: no gaze deviation; no unilateral ptosis appreciated; ENT: +ETT; CVS: warm and well-perfused; Pulm: no respiratory distress; GI: appears non-distended; Ext: no cyanosis appreciated at distal extremities; Skin: no acute rash appreciated at distal extremities; Heme: no bruising or ecchymosis appreciated at distal extremities; Neuro: comatose, intubated, CN 2 - sluggish reactive pupils, CN 3, 4, 6 - oculocephalic absent, CN 5/7 - corneal reflex intact, CN 9/10 - cough reflex noted, CN 11/12 - pt cannot cooperate secondary to LOC; Motor/Sensory - at least 1/5 at distal LUE and 0/5 at all other exts to tactile stimuli; Cerebellar/Gait - pt cannot cooperate secondary to LOC; NIHSS>30 Results - Laboratory Findings CBC and BMP: 12/29/20 22:22 12/29/20 22:22 Abnormal Lab Findings: Abnormal Labs 12/29/20 12/29/2012/29/21 22:22 22:22 22:22 RDW 12.7 L Lymph % (Auto) 41.6 H [place] % (Auto) 8.2 H ABG pH ABG pO2 ABG O2 Saturation ABG Base Excess ABG Hemoglobin Glucose 149 H Lactic Acid 3.20 H* Total Creatine Kinase 235 H Salicylates Acetaminophen 12/29/20 12/29/20 12/29/20 22:22 22:22 23:45 RDW Lymph % (Auto) [place] % (Auto) ABG pH 7.454 H ABG pO2 257.0 H ABG O2 Saturation 99.4 H ABG Base Excess -2.4 L ABG Hemoglobin 13.2 L Glucose Lactic Acid Total Creatine Kinase Salicylates < 0.3 L Acetaminophen 5.0 L 12/29/20 12/30/20 12/30/20 23:46 03:33 04:05 RDW Lymph % (Auto) [place] % (Auto) ABG pH 7.468 H ABG pO2 173.3 H ABG O2 Saturation 99.2 H ABG Base Excess -2.2 L ABG Hemoglobin Glucose Lactic Acid 4.60 H* 3.20 H* Total Creatine Kinase Salicylates Acetaminophen 12/30/20 13:46 RDW Lymph % (Auto) [place] % (Auto) ABG pH ABG pO2 145.0 H ABG O2 Saturation ABG Base Excess ABG Hemoglobin Glucose Lactic Acid Total Creatine Kinase Salicylates Acetaminophen Assessment and Plan 20 yo male with possible depression, presents where he was found unresponsive and down at [facility]. Per EMR, the patient has been cutting his wrist lately and just broke up with his girlfriend. He was intubated emergently in the ED. Per RN, no clinical seizure activity noted. 1. Seizure - stat EEG ordered to r/o status epilepticus. 2. Acute Metabolic Encephalopathy - r/o underlying infection (?CSF) / metabolic / toxic / infectious etiologies, per primary team. 3. Acute Ischemic Stroke - nchct negative; mri brain ordered. 4. Found down / fall - mri c-spine ordered. 5. Suicidal Ideation / Depression - unclear if pt overdosed; uds positive for cannabis; workup per primary team. Derek Teran MD Neurology [id number]
--- NOTE | 2020-12-30 15:28 | XRay Report ---
CHEST 1 VIEW 12/30/2020 1:53 PM INDICATION / CLINICAL INFORMATION: follow up respiratory failure. COMPARISON: 12/29/2020 FINDINGS: SUPPORT DEVICES: Stable position of endotracheal tube at level of clavicles. HEART / MEDIASTINUM: No significant abnormality. LUNGS / PLEURA: No significant pulmonary or pleural abnormality. No pneumothorax. ADDITIONAL FINDINGS: No significant additional findings. IMPRESSION: 1. No acute findings. Signer Name: Richard Ng MD Signed: 12/30/2020 3:24 PM Workstation Name: [id number]
--- NOTE | 2020-12-30 15:58 | Consultation ---
DATE OF CONSULTATION: 12/30/2020 PULMONARY CRITICAL CARE CONSULT NOTE CONSULTING PHYSICIAN: Dr. Eduard Szymanski. REASON FOR CONSULTATION: 1. Acute encephalopathy. 2. Acute hypoxemic respiratory failure, on mechanical ventilatory support. CHIEF COMPLAINT AND HISTORY OF PRESENT ILLNESS: The patient is a now 20-year-old male with past medical history as far as I can tell significant for history of mental illness, depression, who was brought into the Emergency Room by [facility] after being found unresponsive at a [employer] store. He was given some Narcan en route to the hospital without good response. He did have an episode of projectile vomiting, received Zofran for that. The patient reportedly has a history of depression with suicidal ideations. It is unclear if he has been intubated before. Workup in the ER revealed marijuana, positive drug screen, lactic acidosis. CTs of the head and chest were unremarkable and we are asked to assist with management. When I stopped by to see him, he was resting in bed, intubated on full support. He was also on a propofol drip at the time I saw him. Ventilator settings, he was on the assist control mode of ventilation, tidal volumes were set at 450, rate of 18, and PEEP of 6 with 30% FiO2. This really is not much of the history of presentation as I have. PAST MEDICAL HISTORY: Depression/suicidal ideations. PAST SURGICAL HISTORY: Unknown. MEDICATIONS: Medications he was on at the time I stopped by to see him according to the medication administration record included the following: Tylenol 650 mg per rectum q. 6 hours p.r.n. mild pain or fevers. Heparin 5000 units subQ q. 8 hours. Ativan 2 mg IV q. 10 minutes p.r.n. agitation., he was also on an Ativan drip, I believe it was ordered, I did not see it running. Morphine sulfate 2 mg IV q. 4 hours p.r.n. moderate pain and 4 mg IV q. 4 hours p.r.n. severe pain. Propofol drip, I believe was going at 10 mcg per kilogram per minute. ALLERGIES: No known drug allergies. DIET: Well built gentleman, acute weight loss or gain history is unknown. FAMILY AND SOCIAL HISTORY: Apparently, he lives in the community. Alcohol, tobacco and illicit drug use or abuse history is unknown. FAMILY HISTORY: Otherwise unknown. REVIEW OF SYSTEMS: Unobtainable secondary to patient's medical and mental condition. Since he has been here, no gross hematochezia or melena, no gross hematuria or dysuria. No hematemesis, no hemoptysis. No witnessed seizures. Review of systems otherwise unobtainable or as in body of history above. PHYSICAL EXAMINATION: VITAL SIGNS: Temperature afebrile 98.9 degrees Fahrenheit, pulse of 93, respiratory rate 21, blood pressure 134/84, O2 sats 100%, I believe on the above-mentioned vent settings. GENERAL: He is a young male. Normocephalic, atraumatic. On the mechanical ventilator without significant patient ventilator dyssynchrony. HEAD, EYES, EARS, NOSE AND THROAT: Anicteric. No conjunctival erythema. Oropharynx was moist. ET tube was taped around 24 cm at the lips. No gross jugular venous distention, no thyromegaly. Grossly, there were no palpable lymph nodes in the supraclavicular or submandibular lymph node chains. LUNGS: Auscultation of both lung corona was clear. Good bilateral air movement. HEART: Sounds 1 and 2 are heard, regular rate and rhythm at the time of my evaluation without overt rubs or murmurs. ABDOMEN: Soft, full, flat, bowel sounds are positive, nontender, no palpable hepatosplenomegaly. EXTREMITIES: Without overt digital clubbing or cyanosis, no pedal edema. Pedal pulses are 2+ bilaterally. NEUROLOGIC: Pupils were equal, round, about 2 mm, sluggishly reactive to light. Extraocular muscle movements could not be assessed. He had withdrawal movements to all the extremities. SKIN: I should mention the skin in the left inner arm, he had what could possibly be cut dela cruz perhaps from a razor or blade, they appeared superficial. No track dela cruz were seen. Otherwise, the skin was of normal turgor without overt cellulitis or rash in the areas examined. Please see the wound care nurses' notes for full description of the skin. PSYCHIATRIC: Mood and affect could not be assessed, he was sedated. LABORATORY DATA: From my review, white cell count 8200, hemoglobin 14.8, hematocrit 43.9, platelet count 219. No manual differential. INR within normal limits. Venous blood gas yesterday showed a pH of 7.45, pCO2 of 30, pO2 of 257. Today, most recent gas, pH 7.38, pCO2 41, pO2 145, on 30% FiO2 on the above-mentioned vent settings. Serum sodium 139, potassium 3.6, chloride 103, bicarbonate 22, BUN 10, creatinine 1.2, glucose 149. Lactic acid level was 4.6 at presentation, now within normal limits. Liver function test within normal limits. CPK was up slightly at 235. Troponin within normal limits. Urinalysis was unremarkable. Urine drug screen was presumptive positive for marijuana. Alcohol, Tylenol and aspirin levels were nondetectable. Two sets of blood cultures, no growth to date. The patient had neuro imaging and CT of the chest. I have reviewed the CT of the chest. It shows ET tube in good position. Really no acute process that I can see. A CT of the head was done, it was read as a normal CT for his age. ASSESSMENT: 1. Acute respiratory failure, on mechanical ventilatory support. 2. Acute toxic metabolic presumably encephalopathy. 3. History of depression. 4. History of suicidal ideation. 5. Lactic acidosis at presentation. 6. Oropharyngeal dysphagia. PLAN: A Neurology consult will be placed for this gentleman who came in with an acute encephalopathy of undetermined etiology. I do note the drug screen really does not tell the whole picture. He may well have taken a drug that does not show up on the urine drug screen at this point. For now, I will try and begin the weaning process. On review of his demographics, I do not have any home medications listed here but because of his psych history, I will start him empirically on Seroquel. I will go with about 150 b.i.d., hold for sedation, but also begin to lower the set minute ventilation and begin weaning trials. Enteral nutrition will be the feeding modality of choice. Ventilator-associated pneumonia bundle has been introduced. Oxygen will be weaned to keep sats greater than or equal to about 90%. Bronchodilators will be on a p.r.n. basis with routine pulmonary hygiene per the respiratory therapist. Psychiatry evaluation obviously is also an order in this gentleman. No acute indications for antibiotics. The BMP, anion gap do not look suspicious. He is appropriately on DVT prophylaxis. I will be putting him on GI prophylaxis. Flu and pneumonia vaccination will be addressed per protocol. Thank you very much for the consult, Dr. Szymanski. We will follow along and make further recommendations as the picture progresses/becomes clearer. He is critically ill on life-sustaining interventions including mechanical ventilatory support, at very high risk of from cardiopulmonary system decompensation. At this time, we spent about 35-40 minutes of critical care time without overlap and excluding any procedural time that may be necessary. TID: [id number] RECEIPT: [id number] ANSHUL/APARNA
[2020-12-30] MEDS ORDERED: fentaNYL DRIP Premix 2,000 MCG/100 ML BAG IV SCH (16:00)
[2020-12-30] MEDS: SODIUM CHLORIDE 0.9% 1000 ML 1,000 ML IV SCH (21:31)
[2020-12-30] MEDS: FAMOTIDINE 20 MG/2 ML INJ IV SCH (21:40)
[2020-12-30] MEDS: SENNOSIDES/DOCUSATE SODIUM 8.6/50 MG TAB FEEDTUBE SCH (21:41)
[2020-12-30 22:32] LABS: ABG Base Excess -1.8 mmol/L (-2.0-3.0); ABG HCO3 24.7 mmol/L (20.0-26.0); ABG Methemoglobin 0.8 % (0.0-1.5); ABG Oxygen Saturation 98.5 % (95.0-99.0); ABG PCO2 48.4 mm Hg; ABG PH 7.325 pH Units (7.350-7.450); ABG PO2 136.9 mm Hg (80.0-90.0)
[2020-12-31 05:10] LABS: Basophils % (Auto) 0.5 % (0.0-1.8); Eosinophils % (Auto) 0.3 % (0.0-4.3); Hematocrit 40.6 % (35.5-45.6); Hemoglobin 13.9 gm/dl (11.8-15.2); Lymphocytes # (Auto) 1.8 K/mm3 (1.2-5.4); Lymphocytes % (Auto) 20.3 % (13.4-35.0); Mean Corpuscular HGB Conc 34 % (32-34); Mean Corpuscular Volume 94 fl (84-94); Monocytes % (Auto) 10.8 % (0.0-7.3); Platelet Count 182 K/mm3 (140-440); Red Blood Count 4.32 M/mm3 (3.65-5.03); Red Cell Distribution Width 12.8 % (13.2-15.2)
[2020-12-31 05:23] LABS: INR 1.04 (0.87-1.13)
[2020-12-31 05:31] LABS: BUN/Creatinine Ratio 6; Blood Urea Nitrogen 7 mg/dL (9-20); Calcium 8.8 mg/dL (8.4-10.2); Hemolysis Index 2
[2020-12-31] MEDS: HEPARIN 5,000 UNIT/1 ML VIAL SUB-Q SCH ×3 (06:41→23:04)
[2020-12-31] MEDS: fentaNYL 100 MCG/2 ML INJ IV PRN ×2 (07:20→20:10)
--- NOTE | 2020-12-31 08:36 | XRay Report ---
CHEST - 1 VIEW 0701 hours INDICATION: follow up respiratory failure COMPARISON: Yesterday FINDINGS: Support devices: Stable support device positioning. Heart: Stable cardiomediastinal silhouette. Lungs/pleura: The lungs remain generally clear with no evidence for infiltrate, pleural fluid or pne umothorax. Additional findings: None. IMPRESSION: Unchanged exam. No acute process noted. Signer Name: Fermin Hilton Jr, MD Signed: 12/31/2020 8:32 AM Workstation Name: [id number]
--- NOTE | 2020-12-31 08:40 | Progress Note ---
Assessment and Plan Assessment and plan: 20-year-old male with no previous past medical history who presented after being found down at [facility]. Was intubated for airway protection. Per family, patient has been suicidal and recently purchased a gun. Psychiatry evaluated patient and 1013 status ordered. #Acute encephalopathy -Resolving -Intubated for airway protection, plan for extubation today -Noncontrast CT head negative -EEG, MRI brain and C-spine ordered -Neurology consulted, recommendations appreciated -ddx include seizure, overdose, CVA, syncope -TSH, folate, B12 ordered #Lactic acidosis -Resolved #Suicidal ideation -1013 -Psychiatry following, recs appreciated Disposition Plan: Pending extubation Total Time Spent with Patient (Minutes): 20 minutes History Interval history: Patient intubated, but alert. Denies pain and appears to be comfortable. Hospitalist Physical - Physical exam Narrative exam: GENERAL: Well-developed well-nourished. Intubated. HEENT: ET tube in place. CHEST/LUNGS: CTAB HEART/CARDIOVASCULAR: RRR. No murmur, rubs or gallops appreciated. ABDOMEN: +BS. NT/ND. NEURO: No focal motor deficit. Follows all commands. MUSCULOSKELETAL: No joint effusion EXTREMITIES: No cyanosis, clubbing or edema. PSYCH: Cooperative. - Constitutional Vitals: Temp Pulse Resp BP Pulse Ox 99 F 54 L 16 125/78 100 12/30/20 19:05 12/31/20 06:01 12/31/20 06:01 12/31/20 06:01 12/31/20 06:01 General appearance: Present: well-nourished, other (Currently intubated and sedated) HEART Score - HEART Score Troponin: Troponin T < 0.010 ng/mL (0.00-0.029) 12/29/20 22:22 Results - Labs CBC & Chem 7: 12/31/20 04:29 12/31/20 04:29 Labs: Laboratory Last Values WBC 9.1 K/mm3 (4.5-11.0) 12/31/20 04:29 RBC 4.32 M/mm3 (3.65-5.03) 12/31/20 04:29 Hgb 13.9 gm/dl (11.8-15.2) 12/31/20 04:29 Hct 40.6 % (35.5-45.6) 12/31/20 04:29 MCV 94 fl (84-94) 12/31/20 04:29 MCH 32 pg (28-32) 12/31/20 04:29 MCHC 34 % (32-34) 12/31/20 04:29 RDW 12.8 % (13.2-15.2) L 12/31/20 04:29 Plt Count 182 K/mm3 (140-440) 12/31/20 04:29 Lymph % (Auto) 20.3 % (13.4-35.0) 12/31/20 04:29 [place] % (Auto) 10.8 % (0.0-7.3) H 12/31/20 04:29 Eos % (Auto) 0.3 % (0.0-4.3) 12/31/20 04:29 Baso % (Auto) 0.5 % (0.0-1.8) 12/31/20 04:29 Lymph # (Auto) 1.8 K/mm3 (1.2-5.4) 12/31/20 04:29 [place] # (Auto) 1.0 K/mm3 (0.0-0.8) H 12/31/20 04:29 Eos # (Auto) 0.0 K/mm3 (0.0-0.4) 12/31/20 04:29 Baso # (Auto) 0.0 K/mm3 (0.0-0.1) 12/31/20 04:29 Seg Neutrophils % 68.1 % (40.0-70.0) 12/31/20 04:29 Seg Neutrophils # 6.2 K/mm3 (1.8-7.7) 12/31/20 04:29 PT 14.7 Sec. (12.2-14.9) 12/31/20 04:29 INR 1.04 (0.87-1.13) 12/31/20 04:29 APTT 25.7 Sec. (24.2-36.6) 12/29/20 22:22 ABG pH 7.325 pH Units (7.350-7.450) L 12/30/20 22:00 ABG pCO2 48.4 mm Hg 12/30/20 22:00 ABG pO2 136.9 mm Hg (80.0-90.0) H 12/30/20 22:00 ABG HCO3 24.7 mmol/L (20.0-26.0) 12/30/20 22:00 ABG O2 Saturation 98.5 % (95.0-99.0) 12/30/20 22:00 ABG O2 Content 19.8 (0.0-44) 12/30/20 22:00 ABG Base Excess -1.8 mmol/L (-2.0-3.0) 12/30/20 22:00 ABG Hemoglobin 14.5 gm/dl (14.0-18.0) 12/30/20 22:00 ABG Carboxyhemoglobin 1.4 % (0.0-5.0) 12/30/20 22:00 ABG Methemoglobin 0.8 % (0.0-1.5) 12/30/20 22:00 Oxyhemoglobin 96.4 % (95.0-99.0) 12/30/20 22:00 FiO2 30 % 12/30/20 22:00 Sodium 143 mmol/L (137-145) 12/31/20 04:29 Potassium 3.9 mmol/L (3.6-5.0) 12/31/20 04:29 Chloride 107.1 mmol/L (98-107) H 12/31/20 04:29 Carbon Dioxide 23 mmol/L (22-30) 12/31/20 04:29 Anion Gap 17 mmol/L 12/31/20 04:29 BUN 7 mg/dL (9-20) L 12/31/20 04:29 Creatinine 1.1 mg/dL (0.8-1.3) 12/31/20 04:29 Estimated GFR > 60 ml/min 12/31/20 04:29 BUN/Creatinine Ratio 6 % 12/31/20 04:29 Glucose 96 mg/dL (75-100) 12/31/20 04:29 Lactic Acid 1.50 mmol/L (0.7-2.0) 12/30/20 10:30 Calcium 8.8 mg/dL (8.4-10.2) 12/31/20 04:29 Total Bilirubin 0.30 mg/dL (0.1-1.2) 12/29/20 22:22 AST 20 units/L (5-40) 12/29/20 22:22 ALT 14 units/L (7-56) 12/29/20 22:22 Alkaline Phosphatase 71 units/L (35-129) 12/29/20 22:22 Ammonia 36.0 umol/L (25-60) 12/29/20 22:22 Total Creatine Kinase 235 units/L (55-170) H 12/29/20 22:22 Troponin T < 0.010 ng/mL (0.00-0.029) 12/29/20 22:22 Total Protein 7.3 g/dL (6.3-8.2) 12/29/20 22:22 Albumin 4.4 g/dL (3.9-5) 12/29/20 22: Albumin/Globulin Ratio 1.5 % 12/29/20:22 Urine Color Yellow (Yellow) 12/29/20 Unknown Urine Turbidity Clear (Clear) 12/29/20 Unknown Urine pH 6.0 (5.0-7.0) 12/29/20 Unknown Ur Specific [place] 1.025 (1.003-1.030) 12/29/20 Unknown Urine Protein <15 mg/dl mg/dL (Negative) 12/29/20 Unknown Urine Glucose (UA) Neg mg/dL (Negative) 12/29/20 Unknown Urine Ketones Neg mg/dL (Negative) 12/29/20 Unknown Urine Blood Neg (Negative) 12/29/20 Unknown Urine Nitrite Neg (Negative) 12/29/20 Unknown Urine Bilirubin Neg (Negative) 12/29/20 Unknown Urine Urobilinogen 4.0 mg/dL (<2.0) 12/29/20 Unknown Ur Leukocyte Esterase Neg (Negative) 12/29/20 Unknown Urine WBC (Auto) < 1.0 /HPF (0.0-6.0) 12/29/20 Unknown Urine RBC (Auto) 1.0 /HPF (0.0-6.0) 12/29/20 Unknown Urine Mucus Few /HPF 12/29/20 Unknown Salicylates < 0.3 mg/dL (2.8-20.0) L 12/29/20 22:22 Urine Opiates Screen Presumptive negative 12/29/20 22:55 Urine Methadone Screen Presumptive negative 12/29/20 22:55 Acetaminophen 5.0 ug/mL (10.0-30.0) L 12/29/20 22:22 Ur Barbiturates Screen Presumptive negative 12/29/20 22:55 Ur Phencyclidine Scrn Presumptive negative 12/29/20 22:55 Ur Amphetamines Screen Presumptive negative 12/29/20 22:55 U Benzodiazepines Scrn Presumptive negative 12/29/20 22:55 Urine Cocaine Screen Presumptive negative 12/29/20 22:55 U Marijuana (THC) Screen Presumptive positive 12/29/20 22:55 Drugs of Abuse Note Disclamer 12/29/20 22:55 Plasma/Serum Alcohol < 0.01 % (0-0.07) 12/29/20 22:22 Microbiology: Microbiology 12/29/20 23:46 Peripheral/Venous Blood Culture - Preliminary NO GROWTH AFTER 24 HOURS 12/29/20 23:39 Peripheral/Venous Blood Culture - Preliminary NO GROWTH AFTER 24 HOURS Active Medications - Current Medications Current Medications: Generic Name Dose Route Start Last Admin Trade Name Freq PRN Reason Stop Dose Admin Acetaminophen 650 mg 12/30/20 01:11 Acetaminophen [address] Q6H PRN Pain MILD(1-3)/Fever >100.5/CHAVARRIA Lipase/Protease/Amylase 1 each 12/30/20 15:18 Lipase 10,500/Protease 25,000/Amylase 43,750 (Units) Dr Kumar FEEDTUBE PRN PRN For Clogged Feeding Tube Famotidine 20 mg 12/30/20 22:00 12/30/20 21:40 Famotidine 20 Mg/2 Ml Inj IV 20 mg BID LUZ Administration Fentanyl 50 mcg 12/30/20 14:54 Fentanyl 100 Mcg/2 Ml Inj IV Q10MIN PRN ANALGESIA Heparin Sodium (Porcine) 5,000 unit 12/30/20 06:00 12/31/20 06:41 Heparin 5,000 Unit/1 Ml Vial SUB-Q 5,000 unit Q8HR LUZ Administration Hydrophilic Ointment 1 applic 12/29/20 22:19 12/30/20 05:32 Lip Therapy Vaseline TP 1 applic Q2HR PRN Administration Dry Lips Propofol 1,000 mg in 100 mls @ 2.34 mls/hr 12/29/20 23:45 12/29/20 23:55 Diprivan 10 Mg/Ml IV 5 mcg/kg/min TITR LUZ 2.34 mls/hr Administration Protocol 5 MCG/KG/MIN Sodium Chloride 1,000 mls @ 125 mls/hr 12/30/20 01:15 12/30/20 21:31 Nacl 0.9% 1000 Ml IV 125 mls/hr DIRECT LUZ Administration Fentanyl Citrate 2,000 mcg in 100 mls @ 3.9 mls/hr 12/30/20 16:00 Fentanyl Drip Premix IV TITR LUZ Protocol 1 MCG/KG/HR Lorazepam 2 mg 12/29/20 22:19 12/29/20 22:58 Lorazepam 2 Mg/Ml Vial IV 2 mg Q10MIN PRN Administration Agitation Magnesium Hydroxide 30 ml 12/30/20 01:11 Magnesium Hydroxide (Mom) Oral Liqd Udc PO Q4H PRN Constipation Morphine Sulfate 2 mg 12/30/20 01:11 Morphine 2 Mg/1 Ml Inj IV Q4H PRN Pain, Moderate (4-6) Morphine Sulfate 4 mg 12/30/20 01:11 Morphine 4 Mg/1 Ml Inj IV Q4H PRN Pain , Severe (7-10) Multi-Ingred Cream/Lotion/Oil/Oint 1 applic 12/29/20 22:19 Mineral Oil/Petrolatum, White Ophth Oint 3.5 Gm OU Q4HR PRN Dry Eye(s) Senna/Docusate Sodium 1 tab 12/30/20 22:00 12/30/20 21:41 Sennosides/Docusate Sodium 8.6/50 Mg Tab FEEDTUBE Not Given BID LUZ Simple Syrup 15 ml 12/30/20 15:18 Simple Syrup 15 Ml FEEDTUBE PRN PRN Hypoglycemia Simple Syrup 30 ml 12/30/20 15:18 Simple Syrup 15 Ml FEEDTUBE PRN PRN Hypoglycemia Sodium Bicarbonate 325 mg 12/30/20 15:18 Sodium Bicarbonate 325 Mg Tab FEEDTUBE PRN PRN For Clogged Feeding Tube Sodium Chloride 10 ml 12/30/20 10:00 12/30/20 21:20 Sodium Chloride 0.9% 10 Ml Flush Syringe IV 10 ml BID LUZ Administration Sodium Chloride 10 ml 12/30/20 01:11 Sodium Chloride 0.9% 10 Ml Flush Syringe IV PRN PRN LINE FLUSH Nutrition/Malnutrition Assess - Dietary Evaluation Nutrition/Malnutrition Findings: Nutrition Notes Start: 12/30/20 11:44 Freq: Status: Active Protocol: Document 12/30/20 11:44 GB (Rec: 12/30/20 12:01 GB [id number]) Nutrition Notes Need for Assessment generated from: MD Order,Education Initial or Follow up Assessment Other Pertinent Diagnosis AMS, marijuana use Current Diet NPO Labs/Tests 12/29: glucose 149 Pertinent Medications heparin Na, propofol @ 2.34ml/ hr (62kcal), NaCl Height 5 ft 11 in Weight 78 kg [place] Body Weight (kg) 78.18 BMI 24.0 Weight change and time frame admit weight recorded Weight Status Appropriate Subjective/Other Information Pt intubated/sedated pt not a candidate for nutrition education at this time. Burn Absent Trauma Absent GI Symptoms None Food Allergy No Skin Integrity/Comment no reported complications Current % PO Other Minimum of two criteria No #1 Nutrition Diagnosis Swallowing difficulty Etiology AMS As Evidenced by Signs and Symptoms vented/sedated Is patient on ventilator? Yes Is Patient Ambulatory and/or Out of Bed No REE-([place]-confined to bed) 2169.636 Kcal/Kg value to use for calculation 25 Approximate Energy Requirements Using 1950 kcal/Kg Calculation Used for Recommendations Kcal/kg Additional Notes Protein 1-1.4 g/kg @ 78k- 109g Fluids: 1 ml/kcal or per MD Nutrition Intervention Change Diet Order: NPO: continue When extubated advance to Clear liquids to regular. Nutrition Support: TF to start in next 48-72hrs if not extubated by then. recommend vital AF 1.2 @ 65ml/ hr with start rate 35ml/hr Flush 100ml/4hr Total fluids: TF at goal ( 1265ml) + flush (600ml) = 1865ml Kcal 1,872 Protein (gm) 117 Fat (gm) 84 Fluid (mL) 1,265 Education Handouts Provided AND: healthy nutrition therapy at f/u Barriers to Learning Physical,Emotional Goal #1 extubation and diet advanced clear liquid to regular Goal #2 PO intake of meals to be 75% or greater daily for LOS Goal #3 Post 72hrs intubated TF started: Vital AF 1.2 @ 65ml/ hr Follow-Up By: 01/03/21 Additional Comments f/u: vent status, po/TF
[2020-12-31] MEDS: FAMOTIDINE 20 MG/2 ML INJ IV SCH ×2 (11:53→23:04)
[2020-12-31] MEDS: SENNOSIDES/DOCUSATE SODIUM 8.6/50 MG TAB FEEDTUBE SCH ×3 (11:53→22:59)
--- NOTE | 2020-12-31 12:25 | Progress Note ---
Assessment and Plan Acute respiratory failure Acute metabolic toxic encephalopathy Suicide attempt Stop all sedation. Once he is more awake, place on SBT, Psupp of 8. Get weaning parameters with goal to liberate from MVS Will need psych evaluation and sitter once he is liberated from MVS -VAP bundle addressed, aspiration precautions (HOB > 40 degrees) -Titrate supplemental oxygen to keep SpO2 88-90% -Lung protective strategies -Keep negative fluid balance as tolerated by hemodynamics and renal function to help facilitate weaning trials -Glycemic control for target BG 140-180 mg while critically ill; avoid hypoglycemia -bronchodilators with pulmonary hygiene per RT -avoid nephrotoxins, renally dose all medications - prn analgesia per pain score, CPOT score 0-3 - Maintenance of sleep-wake cycle, avoid delirium -Sedation to RASS -2 to -1. Agitation management -Supportive transfusions for serum Hgb < 7.0g/dl, as clinically indicated -Enteric nutritional support, at goal. -Stress ulcer prophylaxis- start Famotidine -VTE prophylaxis- on Heparin -mobility , off loading, frequent turning per facility protocols for pressure ulcer prevention -Monitor hemodynamics closely -Discontinue Lopez catheter no clinical indication for ongoing Lopez -continue other care per attending / other consultants Discussed with primary service CONDITION: CRITICAL PROGNOSIS: GUARDED CODE STATUS: FULL CODE The high probability of a clinically significant, sudden or life-threatening deterioration of the [respiratory, cardiovascular] system(s) required my full and direct attention, intervention and personal management. The aggregate critical care time was [35] minutes without overlap. Time includes spent on; [x] Data Review and interpretation [x] Patient assessment and monitoring of vital signs [x] Documentation [x] Medication orders and management Subjective Date of service: 12/31/20 Interval history: SUMMARY 20-year-old -B[place] male brought into the emergency room by EMS for unresponsiveness and altered mental status having been found down at the [facility]. Patient was said to have been given some Narcan in route to the hospital without any good response. He was said to have had some projectile vom iting and was given Zofran. Most of the history was gotten from the ER staff as family has patient had already been intubated. Information later gathered from family by ER statff indicates that patient has known history of depression and also had some suicidal ideations lately. Work-up in the emergency room today toxicology reveals marijuana. Chemistry reveals lactic acidosis of 4.6 CT scan of the head and chest x-ray were unremarkable. Follow up: Acute hypoxemic resp failure; Acute encephalopathy: Suicide attempt Patient seen and examined. Vitals, labs, medications, chart reviewed. Patient is orally intubated, to MVS, No acute overnight events, discussed with respiratory and nursing staff. No fevers, no nausea or vomiting. Objective Vital Signs - 12hr 12/31/20 12/31/20 12/31/20 00:31 01:01 01:31 Pulse Rate 83 76 81 Respiratory 15 12 14 Rate Blood Pressure 114/66 114/66 122/74 O2 Sat by Pulse 100 100 100 Oximetry 12/31/20 12/31/20 12/31/20 02:01 02:31 03:01 Pulse Rate 71 77 67 Respiratory 14 14 15 Rate Blood Pressure 113/68 115/71 110/64 O2 Sat by Pulse 100 100 100 Oximetry 12/31/20 12/31/20 12/31/20 03:31 04:01 04:11 Pulse Rate 72 72 76 Respiratory 13 14 Rate Blood Pressure 112/66 111/64 124/74 O2 Sat by Pulse 100 100 100 Oximetry 12/31/20 12/31/20 12/31/20 04:31 05:01 05:31 Pulse Rate 75 67 64 Respiratory 17 18 18 Rate Blood Pressure 121/73 120/74 115/68 O2 Sat by Pulse 100 100 100 Oximetry 12/31/20 12/31/20 06:01 08:18 Pulse Rate 54 L 58 L Respiratory 16 Rate Blood Pressure 125/78 128/70 O2 Sat by Pulse 100 100 Oximetry Constitutional: no acute distress Eyes: non-icteric ENT: oropharynx moist, other (orally intubated ETT at 23cm HANNA) Neck: supple, no lymphadenopathy Effort: normal Ascultation: Bilateral: clear, diminished breath sounds Cardiovascular: regular rate and rhythm, other (S1,S2) Gastrointestinal: normoactive bowel sounds, soft, non-tender, non-distended Integumentary: normal Extremities: no cyanosis, no edema, pink and warm, pulses normal, no ischemia or petechiae Neurologic: normal mental status, non-focal exam, pupils equal and round, CN II- XII normal Psychiatric: mood appropriate, affect normal CBC and BMP: 01/01/21 05:31 01/01/21 05:31 ABG, PT/INR, D-dimer: ABG ABG pH 7.325 pH Units (7.350-7.450) L 12/30/20 22:00 ABG pCO2 48.4 mm Hg 12/30/20 22:00 ABG pO2 136.9 mm Hg (80.0-90.0) H 12/30/20 22:00 ABG O2 Saturation 98.5 % (95.0-99.0) 12/30/20 22:00 PT/INR, D-dimer PT 14.7 Sec. (12.2-14.9) 12/31/20 04:29 INR 1.04 (0.87-1.13) 12/31/20 04:29 Abnormal lab findings: Abnormal Labs 12/29/20 12/29/20 12/29/20 22:22 22:22 22:22 RDW 12.7 L Lymph % (Auto) 41.6 H [place] % (Auto) 8.2 H [place] # (Auto) ABG pH ABG pO2 ABG O2 Saturation ABG Base Excess ABG Hemoglobin Chloride BUN Glucose 149 H Lactic Acid 3.20 H* Total Creatine Kinase 235 H Salicylates Acetaminophen 12/29/20 12/29/20 12/29/20 22:22 22:22 23:45 RDW Lymph % (Auto) [place] % (Auto) [place] # (Auto) ABG pH 7.454 H ABG pO2 257.0 H ABG O2 Saturation 99.4 H ABG Base Excess -2.4 L ABG Hemoglobin 13.2 L Chloride BUN Glucose Lactic Acid Total Creatine Kinase Salicylates < 0.3 L Acetaminophen 5.0 L 12/29/20 12/30/20 12/30/20 23:46 03:33 04:05 RDW Lymph % (Auto) [place] % (Auto) [place] # (Auto) ABG pH 7.468 H ABG pO2 173.3 H ABG O2 Saturation 99.2 H ABG Base Excess -2.2 L ABG Hemoglobin Chloride BUN Glucose Lactic Acid 4.60 H* 3.20 H* Total Creatine Kinase Salicylates Acetaminophen 12/30/20 12/30/20 12/31/20 13:46 22:00 04:29 RDW 12.8 L Lymph % (Auto) [place] % (Auto) 10.8 H [place] # (Auto) 1.0 H ABG pH 7.325 L ABG pO2 145.0 H 136.9 H ABG O2 Saturation ABG Base Excess ABG Hemoglobin Chloride BUN Glucose Lactic Acid Total Creatine Kinase Salicylates Acetaminophen 12/31/20 04:29 RDW Lymph % (Auto) [place] % (Auto) [place] # (Auto) ABG pH ABG pO2 ABG O2 Saturation ABG Base Excess ABG Hemoglobin Chloride 107.1 H BUN 7 L Glucose Lactic Acid Total Creatine Kinase Salicylates Acetaminophen Chest x-ray: image reviewed Allied health notes reviewed: RT
--- NOTE | 2020-12-31 12:33 | Consultation ---
History of Present Illness - Reason for Consult Consult date: 12/31/20 Reason for consult: mental health evaluation - Chief Complaint Chief complaint: Altered mental status - History of Present Psychiatric Illness Per ED Note:Patient is a 20-year-old male presents emergency room for unresponsiveness and altered mental status. Patient found down at [facility]. Patient has been unresponsive. EMS brought the patient to the hospital. EMS report received. EMS states that the patient was given Narcan. Patient has been unresponsive the entire time. Patient had projectile vomiting and EMS gave the patient Zofran. EMS started an IV. Patient vascular history is unknown. MD Complaint: decreased responsiveness The patient was seen today. Unable to assess; patient is intubated. PAST PSYCHIATRIC HISTORY:Unable to assess PAST MEDICAL HISTORY: Unable to assess Family Psychiatric History: Unable to assess SOCIAL HISTORY REVIEW OF SYSTEMS- Unable to assess MENTAL STATUS EXAMINATION- Unable to assess Assessment and Plan (1)Unspecified mood disorder Treatment Plan 1013 Continue home medications- Medical: per primary Disposition: Will reassess when patient is more stable. Will follow. Thanks Case staffed with Dr. Abdullahi Medications and Allergies Allergies Allergy/AdvReac Type Severity Reaction Status Date / Time No Known Allergies Allergy Unverified 12/30/20 05:25 Active Meds: Active Medications Acetaminophen (Acetaminophen 650 Mg Rect Supp) 650 mg [place] Q6H PRN PRN Reason: Pain MILD(1-3)/Fever >100.5/[place] Lipase/Protease/Amylase (Lipase 10,500/Protease 25,000/Amylase 43,750 (Units) Dr Kumar) 1 each FEEDTUBE PRN PRN PRN Reason: For Clogged Feeding Tube Famotidine (Famotidine 20 Mg/2 Ml Inj) 20 mg IV BID [facility] Last Admin: 12/31/20 11:53 Dose: 20 mg Documented by: Fentanyl (Fentanyl 100 Mcg/2 Ml Inj) 50 mcg IV Q10MIN PRN PRN Reason: ANALGESIA Heparin Sodium (Porcine) (Heparin 5,000 Unit/1 Ml Vial) 5,000 unit SUB-Q Q8HR [facility] Last Admin: 12/31/20 06:41 Dose: 5,000 unit Documented by: Hydrophilic Ointment (Lip Therapy Vaseline) 1 applic TP Q2HR PRN PRN Reason: Dry Lips Last Admin: 12/30/20 05:32 Dose: 1 applic Documented by: Propofol (Diprivan 10 Mg/Ml) 1,000 mg in 100 mls @ 2.34 mls/hr IV TITR LUZ; Protocol Last Admin: 12/29/20 23:55 Dose: 5 mcg/kg/min, 2.34 mls/hr Documented by: Sodium Chloride (Nacl 0.9% 1000 Ml) 1,000 mls @ 125 mls/hr IV DIRECT LUZ Last Admin: 12/30/20 21:31 Dose: 125 mls/hr Documented by: Fentanyl Citrate (Fentanyl Drip Premix) 2,000 mcg in 100 mls @ 3.9 mls/hr IV TITR LUZ; Protocol Lorazepam (Lorazepam 2 Mg/Ml Vial) 2 mg IV Q10MIN PRN PRN Reason: Agitation Last Admin: 12/29/20 22:58 Dose: 2 mg Documented by: Magnesium Hydroxide (Magnesium Hydroxide (Mom) Oral Liqd Udc) 30 ml PO Q4H PRN PRN Reason: Constipation Morphine Sulfate (Morphine 2 Mg/1 Ml Inj) 2 mg IV Q4H PRN PRN Reason: Pain, Moderate (4-6) Morphine Sulfate (Morphine 4 Mg/1 Ml Inj) 4 mg IV Q4H PRN PRN Reason: Pain , Severe (7-10) Multi-Ingred Cream/Lotion/Oil/Oint (Mineral Oil/Petrolatum, White Ophth Oint 3.5 Gm) 1 applic OU Q4HR PRN PRN Reason: Dry Eye(s) Senna/Docusate Sodium (Sennosides/Docusate Sodium 8.6/50 Mg Tab) 1 tab FEEDTUBE BID [facility] Last Admin: 12/31/20 12:25 Dose: Not Given Documented by: Simple Syrup (Simple Syrup 15 Ml) 15 ml FEEDTUBE PRN PRN PRN Reason: Hypoglycemia Simple Syrup (Simple Syrup 15 Ml) 30 ml FEEDTUBE PRN PRN PRN Reason: Hypoglycemia Sodium Bicarbonate (Sodium Bicarbonate 325 Mg Tab) 325 mg FEEDTUBE PRN PRN PRN Reason: For Clogged Feeding Tube Sodium Chloride (Sodium Chloride 0.9% 10 Ml Flush Syringe) 10 ml IV BID [facility] Last Admin: 12/31/20 11:53 Dose: 10 ml Documented by: Sodium Chloride (Sodium Chloride 0.9% 10 Ml Flush Syringe) 10 ml IV PRN PRN PRN Reason: LINE FLUSH Mental Status Exam - Vital signs Last Vital Signs Temp 99 F 12/30/20 19:05 Pulse 58 L 12/31/20 08:18 Resp 16 12/31/20 06:01 BP 128/70 12/31/20 08:18 Pulse Ox 100 12/31/20 08:18 Results Result Diagrams: 12/31/20 04:29 12/31/20 04:29 Abnormal lab results 12/30/20 12/30/20 12/31/20 Range/Units 13:46 22:00 04:29 RDW 12.8 L (13.2-15.2) % [place] % (Auto) 10.8 H (0.0-7.3) % [place] # (Auto) 1.0 H (0.0-0.8) K/mm3 ABG pH 7.325 L (7.350-7.450) pH Units ABG pO2 145.0 H 136.9 H (80.0-90.0) mm Hg Chloride (98-107) mmol/L BUN (9-20) mg/dL 12/31/20 Range/Units 04:29 RDW (13.2-15.2) % [place] % (Auto) (0.0-7.3) % [place] # (Auto) (0.0-0.8) K/mm3 ABG pH (7.350-7.450) pH Units ABG pO2 (80.0-90.0) mm Hg Chloride 107.1 H (98-107) mmol/L BUN 7 L (9-20) mg/dL All other labs normal.
--- NOTE | 2020-12-31 19:15 | Event Note ---
Date: 12/31/20 Patient still unable to have a mental health assessment secondary to being intubated. Patient was just extubated and is on 2 L of oxygen. Unable to give any additional history at this time the patient's vital signs are stable we will continue to monitor and hopefully by tomorrow the patient will be able to speak and mental health assessment can be done. Lactic acid has decreased to an acceptable level Psychiatric Consult Note Patient Name: NAUN CALLAWAY Date of : 89 Patient Status: Inpatient Attending Provider: AMALIA DENIS Date: 12/31/20 12:31 Initialization Date: 12/31/20 12:31 History of Present Illness - Reason for Consult Consult date: 12/31/20 Reason for consult: mental health evaluation - Chief Complaint Chief complaint: Altered mental status - History of Present Psychiatric Illness Per ED Note:Patient is a 20-year-old male presents emergency room for unresponsiveness and altered mental status. Patient found down at [facility]. Patient has been unresponsive. EMS brought the patient to the hospital. EMS report received. EMS states that the patient was given Narcan. Patient has been unresponsive the entire time. Patient had projectile vomiting and EMS gave the patient Zofran. EMS started an IV. Patient vascular history is unknown. MD Complaint: decreased responsiveness The patient was seen today. Unable to assess; patient is intubated. PAST PSYCHIATRIC HISTORY:Unable to assess PAST MEDICAL HISTORY: Unable to assess Family Psychiatric History: Unable to assess SOCIAL HISTORY REVIEW OF SYSTEMS- Unable to assess MENTAL STATUS EXAMINATION- Unable to assess Assessment and Plan (1)Unspecified mood disorder Treatment Plan 1013 Continue home medications- Medical: per primary Disposition: Will reassess when patient is more stable. Will follow. Thanks Case staffed with Dr. Abdullahi
[2020-12-31] MEDS: SODIUM CHLORIDE 0.9% 1000 ML 1,000 ML IV SCH (22:04)
[2021-01-01] MEDS ORDERED: SODIUM CHLORIDE 0.9% 250ML 250 ML IV ONE (03:28)
[2021-01-01] MEDS: HEPARIN 5,000 UNIT/1 ML VIAL SUB-Q SCH ×3 (05:57→21:43)
[2021-01-01 06:09] LABS: Hemoglobin 13.6 gm/dl (11.8-15.2); Mean Corpuscular HGB Conc 34 % (32-34); Mean Corpuscular Volume 93 fl (84-94); Platelet Count 177 K/mm3 (140-440); Red Blood Count 4.31 M/mm3 (3.65-5.03); Red Cell Distribution Width 12.3 % (13.2-15.2)
[2021-01-01 06:24] LABS: BUN/Creatinine Ratio 11; Blood Urea Nitrogen 11 mg/dL (9-20); Calcium 8.9 mg/dL (8.4-10.2); Hemolysis Index 8
--- NOTE | 2021-01-01 07:58 | Progress Note ---
Assessment and Plan Assessment and plan: 20-year-old male with no previous past medical history who presented after being found down at [facility]. Was intubated for airway protection. Was extubated 12/31. Per family, patient has been suicidal and recently purchased a gun. Psychiatry evaluated patient and 1013 status ordered. Currently stable #Acute encephalopathy-resolved -Intubated for airway protection, extubated on 12/31 -Noncontrast CT head negative -EEG pending -MRI brain and C-spine negative for acute process -Neurology consulted, recommendations appreciated -ddx include seizure, overdose, CVA, syncope -TSH, folate, B12 WNL #Lactic acidosis -Resolved #Suicidal ideation -1013 -Psychiatry following, recs appreciated Disposition Plan: Continue medical management Total Time Spent with Patient (Minutes): 30 minutes History Interval history: Patient extubated yesterday. Currently sleeping but easy to awake. Denies discomfort and suicidal ideation. Hospitalist Physical - Physical exam Narrative exam: GENERAL: Well-developed well-nourished. In bed no acute distress HEENT: Nasal cannula in place at 0.5 L/min CHEST/LUNGS: CTAB HEART/CARDIOVASCULAR: RRR. No murmur, rubs or gallops appreciated. ABDOMEN: +BS. NT/ND. NEURO: No focal motor deficit. Follows all commands. MUSCULOSKELETAL: No joint effusion PSYCH: Flat affect. Cooperative. - Constitutional Vitals: Temp Pulse Resp BP Pulse Ox 99.3 F 68 18 107/56 99 12/31/20 19:15 01/01/21 07:00 01/01/21 07:00 01/01/21 07:00 01/01/21 07:00 General appearance: Present: well-nourished, other (Currently intubated and sedated) HEART Score - HEART Score Troponin: Troponin T < 0.010 ng/mL (0.00-0.029) 12/29/20 22:22 Results - Labs CBC & Chem 7: 01/01/21 05:31 01/01/21 05:31 Labs: Laboratory Last Values WBC 9.4 K/mm3 (4.5-11.0) 01/01/21 05:31 RBC 4.31 M/mm3 (3.65-5.03) 01/01/21 05:31 Hgb 13.6 gm/dl (11.8-15.2) 01/01/21 05:31 Hct 40.0 % (35.5-45.6) 01/01/21 05:31 MCV 93 fl (84-94) 01/01/21 05:31 MCH 32 pg (28-32) 01/01/21 05:31 MCHC 34 % (32-34) 01/01/21 05:31 RDW 12.3 % (13.2-15.2) L 01/01/21 05:31 Plt Count 177 K/mm3 (140-440) 01/01/21 05:31 Lymph % (Auto) 20.3 % (13.4-35.0) 12/31/20 04:29 [place] % (Auto) 10.8 % (0.0-7.3) H 12/31/20 04:29 Eos % (Auto) 0.3 % (0.0-4.3) 12/31/20 04:29 Baso % (Auto) 0.5 % (0.0-1.8) 12/31/20 04:29 Lymph # (Auto) 1.8 K/mm3 (1.2-5.4) 12/31/20 04:29 [place] # (Auto) 1.0 K/mm3 (0.0-0.8) H 12/31/20 04:29 Eos # (Auto) 0.0 K/mm3 (0.0-0.4) 12/31/20 04:29 Baso # (Auto) 0.0 K/mm3 (0.0-0.1) 12/31/20 04:29 Seg Neutrophils % 68.1 % (40.0-70.0) 12/31/20 04:29 Seg Neutrophils # 6.2 K/mm3 (1.8-7.7) 12/31/20 04:29 PT 14.7 Sec. (12.2-14.9) 12/31/20 04:29 INR 1.04 (0.87-1.13) 12/31/20 04:29 APTT 25.7 Sec. (24.2-36.6) 12/29/20 22:22 ABG pH 7.325 pH Units (7.350-7.450) L 12/30/20 22:00 ABG pCO2 48.4 mm Hg 12/30/20 22:00 ABG pO2 136.9 mm Hg (80.0-90.0) H 12/30/20 22:00 ABG HCO3 24.7 mmol/L (20.0-26.0) 12/30/20 22:00 ABG O2 Saturation 98.5 % (95.0-99.0) 12/30/20 22:00 ABG O2 Content 19.8 (0.0-44) 12/30/20 22:00 ABG Base Excess -1.8 mmol/L (-2.0-3.0) 12/30/20 22:00 ABG Hemoglobin 14.5 gm/dl (14.0-18.0) 12/30/20 22:00 ABG Carboxyhemoglobin 1.4 % (0.0-5.0) 12/30/20 22:00 ABG Methemoglobin 0.8 % (0.0-1.5) 12/30/20 22:00 Oxyhemoglobin 96.4 % (95.0-99.0) 12/30/20 22:00 FiO2 30 % 12/30/20 22:00 Sodium 143 mmol/L (137-145) 12/31/20 04:29 Potassium 3.9 mmol/L (3.6-5.0) 12/31/20 04:29 Chloride 107.1 mmol/L (98-107) H 12/31/20 04:29 Carbon Dioxide 25 mmol/L (22-30) 01/01/21 05:31 Anion Gap 17 mmol/L 12/31/20 04:29 BUN 11 mg/dL (9-20) 01/01/21 05:31 Creatinine 1.0 mg/dL (0.8-1.3) 01/01/21 05:31 Estimated GFR > 60 ml/min 01/01/21 05:31 BUN/Creatinine Ratio 11 % 01/01/21 05:31 Glucose 108 mg/dL (75-100) H 01/01/21 05:31 Lactic Acid 1.50 mmol/L (0.7-2.0) 12/30/20 10:30 Calcium 8.9 mg/dL (8.4-10.2) 01/01/21 05:31 Total Bilirubin 0.30 mg/dL (0.1-1.2) 12/29/20 22:22 AST 20 units/L (5-40) 12/29/20 22:22 ALT 14 units/L (7-56) 12/29/20 22:22 Alkaline Phosphatase 71 units/L (35-129) 12/29/20 22:22 Ammonia 36.0 umol/L (25-60) 12/29/20 22:22 Total Creatine Kinase 235 units/L (55-170) H 12/29/20 22:22 Troponin T < 0.010 ng/mL (0.00-0.029) 12/29/20 22:22 Total Protein 7.3 g/dL (6.3-8.2) 12/29/20 22:22 Albumin 4.4 g/dL (3.9-5) 12/29/20 22: Albumin/Globulin Ratio 1.5 % 12/29/20 22:22 Vitamin B12 604.1 pg/mL (211-911) 01/01/21 05:31 Folate 13.51 ng/mL (7.3-26.0) 01/01/21 05:31 TSH 1.120 mlU/mL (0.270-4.200) 01/01/21 05:31 Urine Color Yellow (Yellow) 12/29/20 Unknown Urine Turbidity Clear (Clear) 12/29/20 Unknown Urine pH 6.0 (5.0-7.0) 12/29/20 Unknown Ur Specific [place] 1.025 (1.003-1.030) 12/29/20 Unknown Urine Protein <15 mg/dl mg/dL (Negative) 12/29/20 Unknown Urine Glucose (UA) Neg mg/dL (Negative) 12/29/20 Unknown Urine Ketones Neg mg/dL (Negative) 12/29/20 Unknown Urine Blood Neg (Negative) 12/29/20 Unknown Urine Nitrite Neg (Negative) 12/29/20 Unknown Urine Bilirubin Neg (Negative) 12/29/20 Unknown Urine Urobilinogen 4.0 mg/dL (<2.0) 12/29/20 Unknown Ur Leukocyte Esterase Neg (Negative) 12/29/20 Unknown Urine WBC (Auto) < 1.0 /HPF (0.0-6.0) 12/29/20 Unknown Urine RBC (Auto) 1.0 /HPF (0.0-6.0) 12/29/20 Unknown Urine Mucus Few /HPF 12/29/20 Unknown Salicylates < 0.3 mg/dL (2.8-20.0) L 12/29/20 22:22 Urine Opiates Screen Presumptive negative 12/29/20 22:55 Urine Methadone Screen Presumptive negative 12/29/20 22:55 Acetaminophen 5.0 ug/mL (10.0-30.0) L 12/29/20 22:22 Ur Barbiturates Screen Presumptive negative 12/29/20 22:55 Ur Phencyclidine Scrn Presumptive negative 12/29/20 22:55 Ur Amphetamines Screen Presumptive negative 12/29/20 22:55 U Benzodiazepines Scrn Presumptive negative 12/29/20 22:55 Urine Cocaine Screen Presumptive negative 12/29/20 22:55 U Marijuana (THC) Screen Presumptive positive 12/29/20 22:55 Drugs of Abuse Note Disclamer 12/29/20 22:55 Plasma/Serum Alcohol < 0.01 % (0-0.07) 12/29/20 22:22 Microbiology: Microbiology 12/29/20 23:46 Peripheral/Venous Blood Culture - Preliminary NO GROWTH AFTER 48 HOURS 12/29/20 23:39 Peripheral/Venous Blood Culture - Preliminary NO GROWTH AFTER 48 HOURS Active Medications - Current Medications Current Medications: Generic Name Dose Route Start Last Admin Trade Name Freq PRN Reason Stop Dose Admin Acetaminophen 650 mg 12/30/20 01:11 Acetaminophen 650 Mg Rect Supp SC Q6H PRN Pain MILD(1-3)/Fever >100.5/CHAVARRIA Lipase/Protease/Amylase 1 each 12/30/20 15:18 Lipase 10,500/Protease 25,000/Amylase 43,750 (Units) Dr Kumar FEEDTUBE PRN PRN For Clogged Feeding Tube Famotidine 20 mg 12/30/20 22:00 12/31/20 23:04 Famotidine 20 Mg/2 Ml Inj IV 20 mg BID LUZ Administration Fentanyl 50 mcg 12/30/20 14:54 12/31/20 20:10 Fentanyl 100 Mcg/2 Ml Inj IV 50 mcg Q10MIN PRN Administration ANALGESIA Heparin Sodium (Porcine) 5,000 unit 12/30/20 06:00 01/01/21 05:57 Heparin 5,000 Unit/1 Ml Vial SUB-Q 5,000 unit Q8HR LUZ Administration Hydrophilic Ointment 1 applic 12/29/20 22:19 12/30/20 05:32 Lip Therapy Vaseline TP 1 applic Q2HR PRN Administration Dry Lips Sodium Chloride 1,000 mls @ 125 mls/hr 12/30/20 01:15 12/31/20 22:04 Nacl 0.9% 1000 Ml IV 125 mls/hr DIRECT LUZ Administration Magnesium Hydroxide 30 ml 12/30/20 01:11 Magnesium Hydroxide (Mom) Oral Liqd Udc PO Q4H PRN Constipation Morphine Sulfate 2 mg 12/30/20 01:11 Morphine 2 Mg/1 Ml Inj IV Q4H PRN Pain, Moderate (4-6) Morphine Sulfate 4 mg 12/30/20 01:11 Morphine 4 Mg/1 Ml Inj IV Q4H PRN Pain , Severe (7-10) Multi-Ingred Cream/Lotion/Oil/Oint 1 applic 12/29/20 22:19 Mineral Oil/Petrolatum, White Ophth Oint 3.5 Gm OU Q4HR PRN Dry Eye(s) Senna/Docusate Sodium 1 tab 12/30/20 22:00 12/31/20 22:59 Sennosides/Docusate Sodium 8.6/50 Mg Tab FEEDTUBE Not Given BID LUZ Simple Syrup 15 ml 12/30/20 15:18 Simple Syrup 15 Ml FEEDTUBE PRN PRN Hypoglycemia Simple Syrup 30 ml 12/30/20 15:18 Simple Syrup 15 Ml FEEDTUBE PRN PRN Hypoglycemia Sodium Bicarbonate 325 mg 12/30/20 15:18 Sodium Bicarbonate 325 Mg Tab FEEDTUBE PRN PRN For Clogged Feeding Tube Sodium Chloride 10 ml 12/30/20 10:00 12/31/20 23:04 Sodium Chloride 0.9% 10 Ml Flush Syringe IV 10 ml BID LUZ Administration Sodium Chloride 10 ml 12/30/20 01:11 Sodium Chloride 0.9% 10 Ml Flush Syringe IV PRN PRN LINE FLUSH Nutrition/Malnutrition Assess - Dietary Evaluation Nutrition/Malnutrition Findings: Nutrition Notes Start: 12/30/20 11:44 Freq: Status: Active Protocol: Document 12/30/20 11:44 GB (Rec: 12/30/20 12:01 GB [id number]) Nutrition Notes Need for Assessment generated from: MD Order,Education Initial or Follow up Assessment Other Pertinent Diagnosis AMS, marijuana use Current Diet NPO Labs/Tests 12/29: glucose 149 Pertinent Medications heparin Na, propofol @ 2.34ml/ hr (62kcal), NaCl Height 5 ft 11 in Weight 78 kg [place] Body Weight (kg) 78.18 BMI 24.0 Weight change and time frame admit weight recorded Weight Status Appropriate Subjective/Other Information Pt intubated/sedated pt not a candidate for nutrition education at this time. Burn Absent Trauma Absent GI Symptoms None Food Allergy No Skin Integrity/Comment no reported complications Current % PO Other Minimum of two criteria No #1 Nutrition Diagnosis Swallowing difficulty Etiology AMS As Evidenced by Signs and Symptoms vented/sedated Is patient on ventilator? Yes Is Patient Ambulatory and/or Out of Bed No REE-([facility]-confined to bed) 2169.636 Kcal/Kg value to use for calculation 25 Approximate Energy Requirements Using 1950 kcal/Kg Calculation Used for Recommendations Kcal/kg Additional Notes Protein 1-1.4 g/kg @ 78k- 109g Fluids: 1 ml/kcal or per MD Nutrition Intervention Change Diet Order: NPO: continue When extubated advance to Clear liquids to regular. Nutrition Support: TF to start in next 48-72hrs if not extubated by then. recommend vital AF 1.2 @ 65ml/ hr with start rate 35ml/hr Flush 100ml/4hr Total fluids: TF at goal ( 1265ml) + flush (600ml) = 1865ml Kcal 1,872 Protein (gm) 117 Fat (gm) 84 Fluid (mL) 1,265 Education Handouts Provided AND: healthy nutrition therapy at f/u Barriers to Learning Physical,Emotional Goal #1 extubation and diet advanced clear liquid to regular Goal #2 PO intake of meals to be 75% or greater daily for LOS Goal #3 Post 72hrs intubated TF started: Vital AF 1.2 @ 65ml/ hr Follow-Up By: 01/03/21 Additional Comments f/u: vent status, po/TF
--- NOTE | 2021-01-01 09:18 | Magnetic Resonance Report ---
MR brain wo/w con INDICATION / CLINICAL INFORMATION: 20 years Male; Unresponsive, neoplasm or stroke. TECHNIQUE: Multiplanar, multisequence MR images of the brain were obtained. COMPARISON: None available. FINDINGS: BRAIN / INTRACRANIAL CONTENTS: The motion degrades the image quality despite repeat imaging. However, the brain appears to demonstrate appropriate signal characteristics on the combination of sequences. The diffusion imaging is unremarkable without evidence of recent infarction. The ventricular system is within normal limits in size and configuration. No extra-axial fluid collections or significant ma ss effect is identified. No intracranial enhancing lesions are appreciated. CRANIOCERVICAL JUNCTION: No significant abnormality. VASCULAR FLOW-VOIDS: No significant abnormality. ORBITS: No significant abnormality of visualized orbits. SINUSES / MASTOIDS: There is mild mucosal thickening within the sphenoid and ethmoid sinuses. ADDITIONAL FINDINGS: None. IMPRESSION: 1. The study is limited by motion. However, the MRI the brain appears unremarkable without evidence o f recent infarction or acute intracranial process. 2. There is mild mucosal thickening involving the sphenoid and ethmoid sinuses. Signer Name: Ruperto Finn MD Signed: 01/01/2021 9:13 AM Workstation Name: [id number]
--- NOTE | 2021-01-01 09:20 | Magnetic Resonance Report ---
MR cervical spine wo con INDICATION / CLINICAL INFORMATION: 20 years Male; s/p fall. TECHNIQUE: Multisequence, multiplanar images of the cervical spine were obtained. COMPARISON: None available. FINDINGS: CRANIOCERVICAL JUNCTION:No significant abnormality. ALIGNMENT: There is no significant spondylolisthesis of the cervical spine. VERTEBRAE:There is no significant edema of the cervical vertebral bodies or visualized posterior [place] ents. VISUALIZED SPINAL CORD: The motion degrades the image quality. However, the cervical spinal cord appe ars to demonstrate appropriate signal intensity on the combination of sequences. [id number] ANALYSIS: C2-3: No significant abnormality. C3-4: No significant abnormality. C4-5: No significant abnormality. C5-6: No significant abnormality. C6-7: No significant abnormality. C7-T1: No significant abnormality. PARASPINAL SOFT TISSUES: No significant abnormality. ADDITIONAL FINDINGS: No epidural collections are identified. IMPRESSION: 1. The study is limited by motion. However, the MRI of the cervical spine appears unremarkable withou t evidence of disc protrusion or significant stenosis. Signer Name: Ruperto Finn MD Signed: 01/01/2021 9:15 AM Workstation Name: [id number]
[2021-01-01] MEDS: SENNOSIDES/DOCUSATE SODIUM 8.6/50 MG TAB FEEDTUBE SCH (10:11)
[2021-01-01] MEDS: FAMOTIDINE 20 MG/2 ML INJ IV SCH (10:17)
--- NOTE | 2021-01-01 11:38 | Progress Note ---
Subjective - Reason for Consult Consult date: 01/01/21 Reason for consult: AMS - Chief Complaint Chief complaint: The patient was seen today, he is calm and cooperative. 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 The patient reports that he has no prior psychiatric history and is naive to psychotropic medications. He admits feeling depressed and endorses auditory hallucinations stating " voices telling me to do stuff." REVIEW OF SYSTEMS Constitutional: Negative for weight loss ENT: Negative for stridor Respiratory: Negative for cough or hemoptysis All other systems reviewed and are negative MENTAL STATUS EXAMINATION General Appearance and Behavior: Age appropriate, good hygiene, not wearing appropriate clothes, good eye contact, cooperative polite with questioning. Cooperation: Participating/engaged Psychomotor Behavior: Psychomotor normal Mood: Depressed Affect and affective range: congruent to stated mood Thought Process: circumstantial Thought Content: Not suicidal Speech: Normal tone and pace Suicidal Ideation: Denies Homicidal Ideation: Denies Hallucinations: Yes, auditory Delusions: None Impulse Control: Limited Insight and Judgment: Limited insight and judgment Memory: Normal Attention: Divided attention impaired Orientation: A/o x 3 Assessment and Plan (1)Major depressive disorder (2) Treatment Plan 1013 Start Zoloft 25mg po daily Star Setoquel 25mg po BID Medical: per primary Disposition: Recommend acute psychiatric inpatient treatment Will follow. Thanks Case staffed with Dr. Abdullahi Medications and Allergies Mental Status Exam - Vital signs Last Vital Signs Temp 99.3 F 12/31/20 19:15 Pulse 80 01/01/21 10:30 Resp 24 01/01/21 10:30 BP 125/77 01/01/21 10:30 Pulse Ox 98 01/01/21 10:30
[2021-01-01] MEDS: QUEtiapine 25 MG TAB PO SCH ×2 (12:59→21:43)
[2021-01-01] MEDS: SERTRALINE 25 MG TAB PO SCH (12:59)
--- NOTE | 2021-01-01 13:30 | Progress Note ---
Subjective Date of service: 01/01/21 Interval history: SUMMARY 20-year-old -[place] male brought into the emergency room by EMS for unresponsiveness and altered mental status having been found down at the [facility]. Patient was said to have been given some Narcan in route to the hospital without any good response. He was said to have had some projectile vomiting and was given Zofran. Most of the history was gotten from the ER staff as family has patient had already been intubated. Information later gathered from family by ER statff indicates that patient has known history of depression and also had some suicidal ideations lately. Work-up in the emergency room today toxicology reveals marijuana. Chemistry reveals lactic acidosis of 4.6 CT scan of the head and chest x-ray were unremarkable. Follow up: Acute hypoxemic resp failure; Acute encephalopathy: Suicide attempt Patient seen and examined. Vitals, labs, medications, chart reviewed. Patient is orally intubated, to MVS, No acute overnight events, discussed with respiratory and nursing staff. No fevers, no nausea or vomiting. Objective Vital Signs - 12hr 01/01/21 01/01/21 01/01/21 01:30 02:00 02:30 Pulse Rate 70 76 75 Respiratory 22 17 18 Rate Blood Pressure 109/53 113/60 105/63 O2 Sat by Pulse 98 97 98 Oximetry 01/01/21 01/01/21 01/01/21 03:00 03:30 04:00 Pulse Rate 76 75 69 Respiratory 25 H 18 20 Rate Blood Pressure 95/50 99/53 123/78 O2 Sat by Pulse 99 100 100 Oximetry 01/01/21 01/01/21 01/01/21 04:30 05:00 05:30 Pulse Rate 68 73 85 Respiratory 22 20 18 Rate Blood Pressure 137/69 118/62 116/53 O2 Sat by Pulse 100 99 100 Oximetry 01/01/21 01/01/21 01/01/21 06:00 06:30 07:00 Pulse Rate 74 70 68 Respiratory 20 20 18 Rate Blood Pressure 115/58 114/67 107/56 O2 Sat by Pulse 100 100 99 Oximetry 01/01/21 01/01/21 01/01/21 07:30 08:04 09:00 Pulse Rate 75 65 Respiratory 20 16 18 Rate Blood Pressure 112/54 127/74 O2 Sat by Pulse 100 98 98 Oximetry 1001/01/21 01/01/21 09:30 10:00 10:30 Pulse Rate 81 87 80 Respiratory 18 20 24 Rate Blood Pressure 127/74 125/77 125/77 O2 Sat by Pulse 100 99 98 Oximetry Constitutional: no acute distress Eyes: non-icteric ENT: oropharynx moist, other (orally intubated ETT at 23cm HANNA) Neck: supple, no lymphadenopathy Effort: normal Ascultation: Bilateral: clear, diminished breath sounds Cardiovascular: regular rate and rhythm, other (S1,S2) Gastrointestinal: normoactive bowel sounds, soft, non-tender, non-distended Integumentary: normal Extremities: no cyanosis, no edema, pink and warm, pulses normal, no ischemia or petechiae Neurologic: normal mental status, non-focal exam, pupils equal and round, CN II- XII normal Psychiatric: mood appropriate, affect normal CBC and BMP: 01/01/21 05:31 01/01/21 05:31 ABG, PT/INR, D-dimer: ABG ABG pH 7.325 pH Units (7.350-7.450) L 12/30/20 22:00 ABG pCO2 48.4 mm Hg 12/30/20 22:00 ABG pO2 136.9 mm Hg (80.0-90.0) H 12/30/20 22:00 ABG O2 Saturation 98.5 % (95.0-99.0) 12/30/20 22:00 PT/INR, D-dimer PT 14.7 Sec. (12.2-14.9) 12/31/20 04:29 INR 1.04 (0.87-1.13) 12/31/20 04:29 Abnormal lab findings: Abnormal Labs 12/29/20 12/29/20 12/29/20 22:22 22:22 22:22 RDW 12.7 L Lymph % (Auto) 41.6 H [place] % (Auto) 8.2 H [place] # (Auto) ABG pH ABG pO2 ABG O2 Saturation ABG Base Excess ABG Hemoglobin Chloride BUN Glucose 149 H Lactic Acid 3.20 H* Total Creatine Kinase 235 H Salicylates Acetaminophen 12/29/20 12/29/20 12/29/20 22:22 22:22 23:45 RDW Lymph % (Auto) [place] % (Auto) [place] # (Auto) ABG pH 7.454 H ABG pO2 257.0 H ABG O2 Saturation 99.4 H ABG Base Excess -2.4 L ABG Hemoglobin 13.2 L Chloride BUN Glucose Lactic Acid Total Creatine Kinase Salicylates < 0.3 L Acetaminophen 5.0 L 12/29/20 12/30/20 12/30/20 23:46 03:33 04:05 RDW Lymph % (Auto) [place] % (Auto) [place] # (Auto) ABG pH 7.468 H ABG pO2 173.3 H ABG O2 Saturation 99.2 H ABG Base Excess -2.2 L ABG Hemoglobin Chloride BUN Glucose Lactic Acid 4.60 H* 3.20 H* Total Creatine Kinase Salicylates Acetaminophen 12/30/20 12/30/20 12/31/20 13:46 22:00 04:29 RDW 12.8 L Lymph % (Auto) [place] % (Auto) 10.8 H [place] # (Auto) 1.0 H ABG pH 7.325 L ABG pO2 145.0 H 136.9 H ABG O2 Saturation ABG Base Excess ABG Hemoglobin Chloride BUN Glucose Lactic Acid Total Creatine Kinase Salicylates Acetaminophen 12/31/20 01/01/21 01/01/21 04:29 05:31 05:31 RDW 12.3 L Lymph % (Auto) [place] % (Auto) [place] # (Auto) ABG pH ABG pO2 ABG O2 Saturation ABG Base Excess ABG Hemoglobin Chloride 107.1 H BUN 7 L Glucose 108 H Lactic Acid Total Creatine Kinase Salicylates Acetaminophen Allied health notes reviewed: RT
[2021-01-01] MEDS: SODIUM CHLORIDE 0.9% 1000 ML 1,000 ML IV SCH (21:43)
[2021-01-02] MEDS: HEPARIN 5,000 UNIT/1 ML VIAL SUB-Q SCH ×3 (05:57→22:30)
--- NOTE | 2021-01-02 08:47 | Progress Note ---
Assessment and Plan Assessment and plan: 20-year-old male with no previous past medical history who presented after being found down at [facility]. Was intubated for airway protection. Was extubated 12/31. Per family, patient has been suicidal and recently purchased a gun. Psychiatry evaluated patient and 1013 status ordered. Currently stable. #Syncopal episode -patient reports lightheadedness, dizziness and fatigue prior to collapse -Telemetry -Orthostatic vital signs -Echocardiogram ordered #Major depressive disorder -continue Zoloft and Seroquel #Suicidal ideation -1013 -Psychiatry following, recs appreciated #Acute encephalopathy-resolved -Intubated for airway protection, extubated on 12/31 -Noncontrast CT head negative -EEG pending -MRI brain and C-spine negative for acute process -Neurology consulted, recommendations appreciated -ddx include seizure, overdose, CVA, syncope -TSH, folate, B12 WNL #Lactic acidosis-Resolved Disposition Plan: Home versus inpatient psych Total Time Spent with Patient (Minutes): 20 minutes History Interval history: No acute events overnight. Patient denies SI/HI. No complaints at this time. Hospitalist Physical - Physical exam Narrative exam: GENERAL: Well-developed well-nourished. In bed no acute distress CHEST/LUNGS: CTAB on room air. HEART/CARDIOVASCULAR: RRR. No murmur, rubs or gallops appreciated. ABDOMEN: +BS. NT/ND. NEURO: No focal motor deficit. Follows all commands. MUSCULOSKELETAL: No joint effusion PSYCH: Flat affect. Cooperative. - Constitutional Vitals: Temp Pulse Resp BP Pulse Ox 98.6 F 68 18 112/64 98 01/02/21 05:00 01/02/21 05:00 01/02/21 05:00 01/02/21 05:00 01/02/21 07:42 General appearance: Present: well-nourished, other (Currently intubated and sedated) HEART Score - HEART Score Troponin: Troponin T < 0.010 ng/mL (0.00-0.029) 12/29/20 22:22 Results - Labs CBC & Chem 7: 01/01/21 05:31 01/01/21 05:31 Labs: Laboratory Last Values WBC 9.4 K/mm3 (4.5-11.0) 01/01/21 05:31 RBC 4.31 M/mm3 (3.65-5.03) 01/01/21 05:31 Hgb 13.6 gm/dl (11.8-15.2) 01/01/21 05:31 Hct 40.0 % (35.5-45.6) 01/01/21 05:31 MCV 93 fl (84-94) 01/01/21 05:31 MCH 32 pg (28-32) 01/01/21 05:31 MCHC 34 % (32-34) 01/01/21 05:31 RDW 12.3 % (13.2-15.2) L 01/01/21 05:31 Plt Count 177 K/mm3 (140-440) 01/01/21 05:31 Lymph % (Auto) 20.3 % (13.4-35.0) 12/31/20 04:29 [place] % (Auto) 10.8 % (0.0-7.3) H 12/31/20 04:29 Eos % (Auto) 0.3 % (0.0-4.3) 12/31/20 04:29 Baso % (Auto) 0.5 % (0.0-1.8) 12/31/20 04:29 Lymph # (Auto) 1.8 K/mm3 (1.2-5.4) 12/31/20 04:29 [place] # (Auto) 1.0 K/mm3 (0.0-0.8) H 12/31/20 04:29 Eos # (Auto) 0.0 K/mm3 (0.0-0.4) 12/31/20 04:29 Baso # (Auto) 0.0 K/mm3 (0.0-0.1) 12/31/20 04:29 Seg Neutrophils % 68.1 % (40.0-70.0) 12/31/20 04:29 Seg Neutrophils # 6.2 K/mm3 (1.8-7.7) 12/31/20 04:29 PT 14.7 Sec. (12.2-14.9) 12/31/20 04:29 INR 1.04 (0.87-1.13) 12/31/20 04:29 APTT 25.7 Sec. (24.2-36.6) 12/29/20 22:22 ABG pH 7.325 pH Units (7.350-7.450) L 12/30/20 22:00 ABG pCO2 48.4 mm Hg 12/30/20 22:00 ABG pO2 136.9 mm Hg (80.0-90.0) H 12/30/20 22:00 ABG HCO3 24.7 mmol/L (20.0-26.0) 12/30/20 22:00 ABG O2 Saturation 98.5 % (95.0-99.0) 12/30/20 22:00 ABG O2 Content 19.8 (0.0-44) 12/30/20 22:00 ABG Base Excess -1.8 mmol/L (-2.0-3.0) 12/30/20 22:00 ABG Hemoglobin 14.5 gm/dl (14.0-18.0) 12/30/20 22:00 ABG Carboxyhemoglobin 1.4 % (0.0-5.0) 12/30/20 22:00 ABG Methemoglobin 0.8 % (0.0-1.5) 12/30/20 22:00 Oxyhemoglobin 96.4 % (95.0-99.0) 12/30/20 22:00 FiO2 30 % 12/30/20 22:00 Sodium 140 mmol/L (137-145) 01/01/21 05:31 Potassium 3.7 mmol/L (3.6-5.0) 01/01/21 05:31 Chloride 105.6 mmol/L (98-107) 01/01/21 05:31 Carbon Dioxide 25 mmol/L (22-30) 01/01/21 05:31 Anion Gap 13 mmol/L 01/01/21 05:31 BUN 11 mg/dL (9-20) 01/01/21 05:31 Creatinine 1.0 mg/dL (0.8-1.3) 01/01/21 05:31 Estimated GFR > 60 ml/min 01/01/21 05:31 BUN/Creatinine Ratio 11 % 01/01/21 05:31 Glucose 108 mg/dL (75-100) H 01/01/21 05:31 Lactic Acid 1.50 mmol/L (0.7-2.0) 12/30/20 10:30 Calcium 8.9 mg/dL (8.4-10.2) 01/01/21 05:31 Total Bilirubin 0.30 mg/dL (0.1-1.2) 12/29/20 22:22 AST 20 units/L (5-40) 12/29/20 22:22 ALT 14 units/L (7-56) 12/29/20 22:22 Alkaline Phosphatase 71 units/L (35-129) 12/29/20 22:22 Ammonia 36.0 umol/L (25-60) 12/29/20 22:22 Total Creatine Kinase 235 units/L (55-170) H 12/29/20 22:22 Troponin T < 0.010 ng/mL (0.00-0.029) 12/29/20 22:22 Total Protein 7.3 g/dL (6.3-8.2) 12/29/20 22:22 Albumin 4.4 g/dL (3.9-5) 12/29/20 22:22 Albumin/Globulin Ratio 1.5 % 12/29/20 22:22 Vitamin B12 604.1 pg/mL (211-911) 01/01/21 05:31 Folate 13.51 ng/mL (7.3-26.0) 01/01/21 05:31 TSH 1.120 mlU/mL (0.270-4.200) 01/01/21 05:31 Urine Color Yellow (Yellow) 12/29/20 Unknown Urine Turbidity Clear (Clear) 12/29/20 Unknown Urine pH 6.0 (5.0-7.0) 12/29/20 Unknown Ur Specific [place] 1.025 (1.003-1.030) 12/29/20 Unknown Urine Protein <15 mg/dl mg/dL (Negative) 12/29/20 Unknown Urine Glucose (UA) Neg mg/dL (Negative) 12/29/20 Unknown Urine Ketones Neg mg/dL (Negative) 12/29/20 Unknown Urine Blood Neg (Negative) 12/29/20 Unknown Urine Nitrite Neg (Negative) 12/29/20 Unknown Urine Bilirubin Neg (Negative) 12/29/20 Unknown Urine Urobilinogen 4.0 mg/dL (<2.0) 12/29/20 Unknown Ur Leukocyte Esterase Neg (Negative) 12/29/20 Unknown Urine WBC (Auto) < 1.0 /HPF (0.0-6.0) 12/29/20 Unknown Urine RBC (Auto) 1.0 /HPF (0.0-6.0) 12/29/20 Unknown Urine Mucus Few /HPF 12/29/20 Unknown Salicylates < 0.3 mg/dL (2.8-20.0) L 12/29/20 22:22 Urine Opiates Screen Presumptive negative 12/29/20 22:55 Urine Methadone Screen Presumptive negative 12/29/20 22:55 Acetaminophen 5.0 ug/mL (10.0-30.0) L 12/29/20 22:22 Ur Barbiturates Screen Presumptive negative 12/29/20 22:55 Ur Phencyclidine Scrn Presumptive negative 12/29/20 22:55 Ur Amphetamines Screen Presumptive negative 12/29/20 22:55 U Benzodiazepines Scrn Presumptive negative 12/29/20 22:55 Urine Cocaine Screen Presumptive negative 12/29/20 22:55 U Marijuana (THC) Screen Presumptive positive 12/29/20 22:55 Drugs of Abuse Note Disclamer 12/29/20 22:55 Plasma/Serum Alcohol < 0.01 % (0-0.07) 12/29/20 22:22 Syphilis IgG Antibody Nonreactive (NonReactive) 01/01/21 05:31 Microbiology: Microbiology 12/29/20 23:46 Peripheral/Venous Blood Culture - Preliminary NO GROWTH AFTER 72 HOURS 12/29/20 23:39 Peripheral/Venous Blood Culture - Preliminary NO GROWTH AFTER 72 HOURS Lopez/IV: Voiding Method Urinal Active Medications - Current Medications Current Medications: Generic Name Dose Route Start Last Admin Trade Name Freq PRN Reason Stop Dose Admin Acetaminophen 650 mg 12/30/20 01:11 Acetaminophen 650 Mg Rect Supp MT Q6H PRN Pain MILD(1-3)/Fever >100.5/CHAVARRIA Heparin Sodium (Porcine) 5,000 unit 12/30/20 06:00 01/02/21 05:57 Heparin 5,000 Unit/1 Ml Vial SUB-Q 5,000 unit Q8HR LUZ Administration Hydrophilic Ointment 1 applic 12/29/20 22:19 12/30/20 05:32 Lip Therapy Vaseline TP 1 applic Q2HR PRN Administration Dry Lips Sodium Chloride 1,000 mls @ 125 mls/hr 12/30/20 01:15 01/01/21 21:43 Nacl 0.9% 1000 Ml IV 125 mls/hr DIRECT LUZ Administration Magnesium Hydroxide 30 ml 12/30/20 01:11 Magnesium Hydroxide (Mom) Oral Liqd Udc PO Q4H PRN Constipation Morphine Sulfate 2 mg 12/30/20 01:11 Morphine 2 Mg/1 Ml Inj IV Q4H PRN Pain, Moderate (4-6) Morphine Sulfate 4 mg 12/30/20 01:11 Morphine 4 Mg/1 Ml Inj IV Q4H PRN Pain , Severe (7-10) Quetiapine Fumarate 25 mg 01/01/21 12:00 01/01/21 21:43 Quetiapine 25 Mg Tab PO 25 mg BID LUZ Administration Sertraline HCl 25 mg 01/01/21 12:00 01/01/21 12:59 Sertraline 25 Mg Tab PO 25 mg QDAY LUZ Administration Sodium Chloride 10 ml 12/30/20 10:00 01/01/21 21:43 Sodium Chloride 0.9% 10 Ml Flush Syringe IV 10 ml BID LUZ Administration Sodium Chloride 10 ml 12/30/20 01:11 Sodium Chloride 0.9% 10 Ml Flush Syringe IV PRN PRN LINE FLUSH Nutrition/Malnutrition Assess - Dietary Evaluation Nutrition/Malnutrition Findings: Nutrition Notes Start: 12/30/20 11:44 Freq: Status: Active Protocol: Document 12/30/20 11:44 GB (Rec: 12/30/20 12:01 GB [id number]) Nutrition Notes Need for Assessment generated from: MD Order,Education Initial or Follow up Assessment Other Pertinent Diagnosis AMS, marijuana use Current Diet NPO Labs/Tests 12/29: glucose 149 Pertinent Medications heparin Na, propofol @ 2.34ml/ hr (62kcal), NaCl Height 5 ft 11 in Weight 78 kg [place] Body Weight (kg) 78.18 BMI 24.0 Weight change and time frame admit weight recorded Weight Status Appropriate Subjective/Other Information Pt intubated/sedated pt not a candidate for nutrition education at this time. Burn Absent Trauma Absent GI Symptoms None Food Allergy No Skin Integrity/Comment no reported complications Current % PO Other Minimum of two criteria No #1 Nutrition Diagnosis Swallowing difficulty Etiology AMS As Evidenced by Signs and Symptoms vented/sedated Is patient on ventilator? Yes Is Patient Ambulatory and/or Out of Bed No REE-([facility]-confined to bed) 2169.636 Kcal/Kg value to use for calculation 25 Approximate Energy Requirements Using 1950 kcal/Kg Calculation Used for Recommendations Kcal/kg Additional Notes Protein 1-1.4 g/kg @ 78k- 109g Fluids: 1 ml/kcal or per MD Nutrition Intervention Change Diet Order: NPO: continue When extubated advance to Clear liquids to regular. Nutrition Support: TF to start in next 48-72hrs if not extubated by then. recommend vital AF 1.2 @ 65ml/ hr with start rate 35ml/hr Flush 100ml/4hr Total fluids: TF at goal ( 1265ml) + flush (600ml) = 1865ml Kcal 1,872 Protein (gm) 117 Fat (gm) 84 Fluid (mL) 1,265 Education Handouts Provided AND: healthy nutrition therapy at f/u Barriers to Learning Physical,Emotional Goal #1 extubation and diet advanced clear liquid to regular Goal #2 PO intake of meals to be 75% or greater daily for LOS Goal #3 Post 72hrs intubated TF started: Vital AF 1.2 @ 65ml/ hr Follow-Up By: 01/03/21 Additional Comments f/u: vent status, po/TF
[2021-01-02] MEDS: SERTRALINE 25 MG TAB PO SCH (09:03)
[2021-01-02] MEDS: QUEtiapine 25 MG TAB PO SCH ×2 (09:03→22:29)
--- NOTE | 2021-01-02 11:45 | Event Note ---
Date: 01/02/21 Unable to see patient; he is off the floor.
--- NOTE | 2021-01-02 15:00 | Progress Note ---
Subjective Date of service: 01/02/21 Interval history: SUMMARY 20-year-old -[place] male brought into the emergency room by EMS for unresponsiveness and altered mental status having been found down at the [facility]. Patient was said to have been given some Narcan in route to the hospital without any good response. He was said to have had some projectile vomiting and was given Zofran. Most of the history was gotten from the ER staff as family has patient had already been intubated. Information later gathered from family by ER statff indicates that patient has known history of depression and also had some suicidal ideations lately. Work-up in the emergency room today toxicology reveals marijuana. Chemistry reveals lactic acidosis of 4.6 CT scan of the head and chest x-ray were unremarkable. Follow up: Acute hypoxemic resp failure; Acute encephalopathy: Suicide attempt Patient seen and examined. Vitals, labs, medications, chart reviewed. Patient is orally intubated, to MVS, No acute overnight events, discussed with respiratory and nursing staff. No fevers, no nausea or vomiting. Objective Vital Signs - 12hr 01/02/21 01/02/21 01/02/21 05:00 07:42 12:10 Temperature 98.6 F 98.1 F Pulse Rate 68 98 H Respiratory 18 18 Rate Blood Pressure 119/80 Blood Pressure 112/64 [Right] O2 Sat by Pulse 97 98 97 Oximetry Constitutional: no acute distress Eyes: non-icteric ENT: oropharynx moist, other (orally intubated ETT at 23cm HANNA) Neck: supple, no lymphadenopathy Effort: normal Ascultation: Bilateral: clear, diminished breath sounds Cardiovascular: regular rate and rhythm, other (S1,S2) Gastrointestinal: normoactive bowel sounds, soft, non-tender, non-distended Integumentary: normal Extremities: no cyanosis, no edema, pink and warm, pulses normal, no ischemia or petechiae Neurologic: normal mental status, non-focal exam, pupils equal and round, CN II- XII normal Psychiatric: mood appropriate, affect normal CBC and BMP: 01/01/21 05:31 01/01/21 05:31 ABG, PT/INR, D-dimer: ABG ABG pH 7.325 pH Units (7.350-7.450) L 12/30/20 22:00 ABG pCO2 48.4 mm Hg 12/30/20 22:00 ABG pO2 136.9 mm Hg (80.0-90.0) H 12/30/20 22:00 ABG O2 Saturation 98.5 % (95.0-99.0) 12/30/20 22:00 PT/INR, D-dimer PT 14.7 Sec. (12.2-14.9) 12/31/20 04:29 INR 1.04 (0.87-1.13) 12/31/20 04:29 Abnormal lab findings: Abnormal Labs 12/29/20 12/29/20 12/29/20 22:22 22:22 22:22 RDW 12.7 L Lymph % (Auto) 41.6 H [place] % (Auto) 8.2 H [place] # (Auto) ABG pH ABG pO2 ABG O2 Saturation ABG Base Excess ABG Hemoglobin Chloride BUN Glucose 149 H Lactic Acid 3.20 H* Total Creatine Kinase 235 H Salicylates Acetaminophen 12/29/20 12/29/20 12/29/20 22:22 22:22 23:45 RDW Lymph % (Auto) [place] % (Auto) [place] # (Auto) ABG pH 7.454 H ABG pO2 257.0 H ABG O2 Saturation 99.4 H ABG Base Excess -2.4 L ABG Hemoglobin 13.2 L Chloride BUN Glucose Lactic Acid Total Creatine Kinase Salicylates < 0.3 L Acetaminophen 5.0 L 12/29/20 12/30/20 12/30/20 23:46 03:33 04:05 RDW Lymph % (Auto) [place] % (Auto) [place] # (Auto) ABG pH 7.468 H ABG pO2 173.3 H ABG O2 Saturation 99.2 H ABG Base Excess -2.2 L ABG Hemoglobin Chloride BUN Glucose Lactic Acid 4.60 H* 3.20 H* Total Creatine Kinase Salicylates Acetaminophen 12/30/20 12/30/20 12/31/20 13:46 22:00 04:29 RDW 12.8 L Lymph % (Auto) [place] % (Auto) 10.8 H [place] # (Auto) 1.0 H ABG pH 7.325 L ABG pO2 145.0 H 136.9 H ABG O2 Saturation ABG Base Excess ABG Hemoglobin Chloride BUN Glucose Lactic Acid Total Creatine Kinase Salicylates Acetaminophen 12/31/20 01/01/21 01/01/21 04:29 05:31 05:31 RDW 12.3 L Lymph % (Auto) [place] % (Auto) [place] # (Auto) ABG pH ABG pO2 ABG O2 Saturation ABG Base Excess ABG Hemoglobin Chloride 107.1 H BUN 7 L Glucose 108 H Lactic Acid Total Creatine Kinase Salicylates Acetaminophen Allied health notes reviewed: RT
[2021-01-02] MEDS: SODIUM CHLORIDE 0.9% 1000 ML 1,000 ML IV SCH ×2 (16:22→22:31)
[2021-01-03] MEDS: HEPARIN 5,000 UNIT/1 ML VIAL SUB-Q SCH ×3 (05:16→23:25)
[2021-01-03] MEDS: SODIUM CHLORIDE 0.9% 1000 ML 1,000 ML IV SCH ×3 (05:33→23:31)
[2021-01-03] MEDS: SERTRALINE 25 MG TAB PO SCH (10:25)
[2021-01-03] MEDS: QUEtiapine 25 MG TAB PO SCH ×2 (10:25→23:25)
--- NOTE | 2021-01-03 13:00 | Progress Note ---
Assessment and Plan Assessment and plan: 20-year-old male with no previous past medical history who presented after being found down at [facility]. Was intubated for airway protection. Was extubated 12/31. Per family, patient has been suicidal and recently purchased a gun. Psychiatry evaluated patient and 1013 status ordered. Currently stable. #Syncopal episode -patient reports lightheadedness, dizziness and fatigue prior to collapse -Telemetry -Orthostatic vital signs -Echocardiogram with normal ejection fraction and no abnormalities #Major depressive disorder -continue Zoloft and Seroquel #Suicidal ideation -1013 -Psychiatry following, recs appreciated #Acute encephalopathy-resolved -Intubated for airway protection, extubated on 12/31 -Noncontrast CT head negative -EEG pending -MRI brain and C-spine negative for acute process -Neurology consulted in ED -ddx include seizure, overdose, CVA, syncope -TSH, folate, B12 WNL #Lactic acidosis-Resolved Disposition Plan: Pending psychiatry final recommendations Total Time Spent with Patient (Minutes): 20 minutes History Interval history: No acute events overnight. Patient denies SI/HI. No complaints at this time. Hospitalist Physical - Physical exam Narrative exam: GENERAL: Well-developed well-nourished. In bed no acute distress CHEST/LUNGS: CTAB on room air. HEART/CARDIOVASCULAR: RRR. No murmur, rubs or gallops appreciated. ABDOMEN: +BS. NT/ND. NEURO: No focal motor deficit. Follows all commands. MUSCULOSKELETAL: No joint effusion PSYCH: Flat affect. Cooperative. - Constitutional Vitals: Temp Pulse Resp BP Pulse Ox 98.3 F 55 L 20 113/63 97 01/03/21 05:24 01/03/21 05:24 01/03/21 05:24 01/03/21 05:24 01/03/21 05:24 General appearance: Present: well-nourished, other (Currently intubated and sedated) HEART Score - HEART Score Troponin: Troponin T < 0.010 ng/mL (0.00-0.029) 12/29/20 22:22 Results - Labs CBC & Chem 7: 01/01/21 05:31 01/01/21 05:31 Labs: Laboratory Last Values WBC 9.4 K/mm3 (4.5-11.0) 01/01/21 05:31 RBC 4.31 M/mm3 (3.65-5.03) 01/01/21 05:31 Hgb 13.6 gm/dl (11.8-15.2) 01/01/21 05:31 Hct 40.0 % (35.5-45.6) 01/01/21 05:31 MCV 93 fl (84-94) 01/01/21 05:31 MCH 32 pg (28-32) 01/01/21 05:31 MCHC 34 % (32-34) 01/01/21 05:31 RDW 12.3 % (13.2-15.2) L 01/01/21 05:31 Plt Count 177 K/mm3 (140-440) 01/01/21 05:31 Lymph % (Auto) 20.3 % (13.4-35.0) 12/31/20 04:29 [place] % (Auto) 10.8 % (0.0-7.3) H 12/31/20 04:29 Eos % (Auto) 0.3 % (0.0-4.3) 12/31/20 04:29 Baso % (Auto) 0.5 % (0.0-1.8) 12/31/20 04:29 Lymph # (Auto) 1.8 K/mm3 (1.2-5.4) 12/31/20 04:29 [place] # (Auto) 1.0 K/mm3 (0.0-0.8) H 12/31/20 04:29 Eos # (Auto) 0.0 K/mm3 (0.0-0.4) 12/31/20 04:29 Baso # (Auto) 0.0 K/mm3 (0.0-0.1) 12/31/20 04:29 Seg Neutrophils % 68.1 % (40.0-70.0) 12/31/20 04:29 Seg Neutrophils # 6.2 K/mm3 (1.8-7.7) 12/31/20 04:29 PT 14.7 Sec. (12.2-14.9) 12/31/20 04:29 INR 1.04 (0.87-1.13) 12/31/20 04:29 APTT 25.7 Sec. (24.2-36.6) 12/29/20 22:22 ABG pH 7.325 pH Units (7.350-7.450) L 12/30/20 22:00 ABG pCO2 48.4 mm Hg 12/30/20 22:00 ABG pO2 136.9 mm Hg (80.0-90.0) H 12/30/20 22:00 ABG HCO3 24.7 mmol/L (20.0-26.0) 12/30/20 22:00 ABG O2 Saturation 98.5 % (95.0-99.0) 12/30/20 22:00 ABG O2 Content 19.8 (0.0-44) 12/30/20 22:00 ABG Base Excess -1.8 mmol/L (-2.0-3.0) 12/30/20 22:00 ABG Hemoglobin 14.5 gm/dl (14.0-18.0) 12/30/20 22:00 ABG Carboxyhemoglobin 1.4 % (0.0-5.0) 12/30/20 22:00 ABG Methemoglobin 0.8 % (0.0-1.5) 12/30/20 22:00 Oxyhemoglobin 96.4 % (95.0-99.0) 12/30/20 22:00 FiO2 30 % 12/30/20 22:00 Sodium 140 mmol/L (137-145) 01/01/21 05:31 Potassium 3.7 mmol/L (3.6-5.0) 01/01/21 05:31 Chloride 105.6 mmol/L (98-107) 01/01/21 05:31 Carbon Dioxide 25 mmol/L (22-30) 01/01/21 05:31 Anion Gap 13 mmol/L 01/01/21 05:31 BUN 11 mg/dL (9-20) 01/01/21 05:31 Creatinine 1.0 mg/dL (0.8-1.3) 01/01/21 05:31 Estimated GFR > 60 ml/min 01/01/21 05:31 BUN/Creatinine Ratio 11 % 01/01/21 05:31 Glucose 108 mg/dL (75-100) H 01/01/21 05:31 Lactic Acid 1.50 mmol/L (0.7-2.0) 12/30/20 10:30 Calcium 8.9 mg/dL (8.4-10.2) 01/01/21 05:31 Total Bilirubin 0.30 mg/dL (0.1-1.2) 12/29/20 22:22 AST 20 units/L (5-40) 12/29/20 22:22 ALT 14 units/L (7-56) 12/29/20 22:22 Alkaline Phosphatase 71 units/L (35-129) 12/29/20 22:22 Ammonia 36.0 umol/L (25-60) 12/29/20 22:22 Total Creatine Kinase 235 units/L (55-170) H 12/29/20 22:22 Troponin T < 0.010 ng/mL (0.00-0.029) 12/29/20 22:22 Total Protein 7.3 g/dL (6.3-8.2) 12/29/20 22:22 Albumin 4.4 g/dL (3.9-5) 12/29/20 22:22 Albumin/Globulin Ratio 1.5 % 12/29/20 22:22 Vitamin B12 604.1 pg/mL (211-911) 01/01/21 05:31 Folate 13.51 ng/mL (7.3-26.0) 01/01/21 05:31 TSH 1.120 mlU/mL (0.270-4.200) 01/01/21 05:31 Urine Color Yellow (Yellow) 12/29/20 Unknown Urine Turbidity Clear (Clear) 12/29/20 Unknown Urine pH 6.0 (5.0-7.0) 12/29/20 Unknown Ur Specific [place] 1.025 (1.003-1.030) 12/29/20 Unknown Urine Protein <15 mg/dl mg/dL (Negative) 12/29/20 Unknown Urine Glucose (UA) Neg mg/dL (Negative) 12/29/20 Unknown Urine Ketones Neg mg/dL (Negative) 12/29/20 Unknown Urine Blood Neg (Negative) 12/29/20 Unknown Urine Nitrite Neg (Negative) 12/29/20 Unknown Urine Bilirubin Neg (Negative) 12/29/20 Unknown Urine Urobilinogen 4.0 mg/dL (<2.0) 12/29/20 Unknown Ur Leukocyte Esterase Neg (Negative) 12/29/20 Unknown Urine WBC (Auto) < 1.0 /HPF (0.0-6.0) 12/29/20 Unknown Urine RBC (Auto) 1.0 /HPF (0.0-6.0) 12/29/20 Unknown Urine Mucus Few /HPF 12/29/20 Unknown Salicylates < 0.3 mg/dL (2.8-20.0) L 12/29/20 22:22 Urine Opiates Screen Presumptive negative 12/29/20 22:55 Urine Methadone Screen Presumptive negative 12/29/20 22:55 Acetaminophen 5.0 ug/mL (10.0-30.0) L 12/29/20 22:22 Ur Barbiturates Screen Presumptive negative 12/29/20 22:55 Ur Phencyclidine Scrn Presumptive negative 12/29/20 22:55 Ur Amphetamines Screen Presumptive negative 12/29/20 22:55 U Benzodiazepines Scrn Presumptive negative 12/29/20 22:55 Urine Cocaine Screen Presumptive negative 12/29/20 22:55 U Marijuana (THC) Screen Presumptive positive 12/29/20 22:55 Drugs of Abuse Note Disclamer 12/29/20 22:55 Plasma/Serum Alcohol < 0.01 % (0-0.07) 12/29/20 22:22 Syphilis IgG Antibody Nonreactive (NonReactive) 01/01/21 05:31 Microbiology: Microbiology 12/29/20 23:46 Peripheral/Venous Blood Culture - Preliminary NO GROWTH AFTER 4 DAYS 12/29/20 23:39 Peripheral/Venous Blood Culture - Preliminary NO GROWTH AFTER 4 DAYS Lopez/IV: Voiding Method Urinal Active Medications - Current Medications Current Medications: Generic Name Dose Route Start Last Admin Trade Name Freq PRN Reason Stop Dose Admin Acetaminophen 650 mg 12/30/20 01:11 Acetaminophen 650 Mg Rect Supp CO Q6H PRN Pain MILD(1-3)/Fever >100.5/CHAVARRIA Heparin Sodium (Porcine) 5,000 unit 12/30/20 06:00 01/03/21 05:16 Heparin 5,000 Unit/1 Ml Vial SUB-Q 5,000 unit Q8HR LUZ Administration Hydrophilic Ointment 1 applic 12/29/20 22:19 12/30/20 05:32 Lip Therapy Vaseline TP 1 applic Q2HR PRN Administration Dry Lips Sodium Chloride 1,000 mls @ 125 mls/hr 12/30/20 01:15 01/03/21 05:33 Nacl 0.9% 1000 Ml IV 125 mls/hr DIRECT LUZ Administration Magnesium Hydroxide 30 ml 12/30/20 01:11 Magnesium Hydroxide (Mom) Oral Liqd Udc PO Q4H PRN Constipation Morphine Sulfate 2 mg 12/30/20 01:11 Morphine 2 Mg/1 Ml Inj IV Q4H PRN Pain, Moderate (4-6) Morphine Sulfate 4 mg 12/30/20 01:11 Morphine 4 Mg/1 Ml Inj IV Q4H PRN Pain , Severe (7-10) Quetiapine Fumarate 25 mg 01/01/21 12:00 01/03/21 10:25 Quetiapine 25 Mg Tab PO 25 mg BID LUZ Administration Sertraline HCl 25 mg 01/01/21 12:00 01/03/21 10:25 Sertraline 25 Mg Tab PO 25 mg QDAY LUZ Administration Sodium Chloride 10 ml 12/30/20 10:00 01/03/21 10:28 Sodium Chloride 0.9% 10 Ml Flush Syringe IV 10 ml BID LUZ Administration Sodium Chloride 10 ml 12/30/20 01:11 Sodium Chloride 0.9% 10 Ml Flush Syringe IV PRN PRN LINE FLUSH Nutrition/Malnutrition Assess - Dietary Evaluation Nutrition/Malnutrition Findings: Nutrition Notes Start: 12/30/20 11:44 Freq: Status: Active Protocol: Document 12/30/20 11:44 GB (Rec: 12/30/20 12:01 GB [id number]) Nutrition Notes Need for Assessment generated from: MD Order,Education Initial or Follow up Assessment Other Pertinent Diagnosis AMS, marijuana use Current Diet NPO Labs/Tests 12/29: glucose 149 Pertinent Medications heparin Na, propofol @ 2.34ml/ hr (62kcal), NaCl Height 5 ft 11 in Weight 78 kg [place] Body Weight (kg) 78.18 BMI 24.0 Weight change and time frame admit weight recorded Weight Status Appropriate Subjective/Other Information Pt intubated/sedated pt not a candidate for nutrition education at this time. Burn Absent Trauma Absent GI Symptoms None Food Allergy No Skin Integrity/Comment no reported complications Current % PO Other Minimum of two criteria No #1 Nutrition Diagnosis Swallowing difficulty Etiology AMS As Evidenced by Signs and Symptoms vented/sedated Is patient on ventilator? Yes Is Patient Ambulatory and/or Out of Bed No REE-([place]-[facility] Jeor-confined to bed) 2169.636 Kcal/Kg value to use for calculation 25 Approximate Energy Requirements Using 1950 kcal/Kg Calculation Used for Recommendations Kcal/kg Additional Notes Protein 1-1.4 g/kg @ 78k- 109g Fluids: 1 ml/kcal or per MD Nutrition Intervention Change Diet Order: NPO: continue When extubated advance to Clear liquids to regular. Nutrition Support: TF to start in next 48-72hrs if not extubated by then. recommend vital AF 1.2 @ 65ml/ hr with start rate 35ml/hr Flush 100ml/4hr Total fluids: TF at goal ( 1265ml) + flush (600ml) = 1865ml Kcal 1,872 Protein (gm) 117 Fat (gm) 84 Fluid (mL) 1,265 Education Handouts Provided AND: healthy nutrition therapy at f/u Barriers to Learning Physical,Emotional Goal #1 extubation and diet advanced clear liquid to regular Goal #2 PO intake of meals to be 75% or greater daily for LOS Goal #3 Post 72hrs intubated TF started: Vital AF 1.2 @ 65ml/ hr Follow-Up By: 01/03/21 Additional Comments f/u: vent status, po/TF
--- NOTE | 2021-01-03 14:46 | Progress Note ---
Subjective - Reason for Consult Consult date: 01/03/21 Reason for consult: mental health evaluation - Chief Complaint Chief complaint: The patient was seen today, he is calm, poor eye contact and cooperative. The patient reports doing well. He reports sleep and appetite as good. He denies any current suicidal/homicidal ideation and denies hallucinations. REVIEW OF SYSTEMS Constitutional: Negative for weight loss ENT: Negative for stridor Respiratory: Negative for cough or hemoptysis All other systems reviewed and are negative MENTAL STATUS EXAMINATION General Appearance and Behavior: Age appropriate, good hygiene, not wearing appropriate clothes, good eye contact, cooperative polite with questioning. Cooperation: Participating/engaged Psychomotor Behavior: Psychomotor normal Mood: "ok" Affect and affective range: congruent to stated mood Thought Process: goal directed Thought Content: Not suicidal Speech: Normal tone and pace Suicidal Ideation: Denies Homicidal Ideation: Denies Hallucinations: Denies Delusions: None Impulse Control: Limited Insight and Judgment: Limited insight and fair judgment Memory: Normal Attention: Divided attention impaired Orientation: A/o x 3 Assessment and Plan (1)Major depressive disorder (2) Treatment Plan DC 1013 Continue Zoloft 25mg po daily Continue Seroquel 25mg po BID Medical: per primary Disposition: Do not recommend acute psychiatric inpatient treatment. The kennel keeper will provide patient with outpatient psychiatry resources. Will sign off. Thanks Case staffed with Dr. Abdullahi Medications and Allergies Mental Status Exam - Vital signs Last Vital Signs Temp 98.3 F 01/03/21 05:24 Pulse 55 L 01/03/21 05:24 Resp 20 01/03/21 05:24 BP 113/63 01/03/21 05:24 Pulse Ox 97 01/03/21 05:24
--- NOTE | 2021-01-03 19:45 | Progress Note ---
Assessment and Plan Patient admitted in an unresponsive state. patient intubated and extubated. Patient alert. Patient awake.Patient afebrile and vital signs stable. No acute respiratory distress - Patient Problems (1) Respiratory failure Status: Acute Qualifiers: Chronicity: acute Respiratory failure complication: hypoxia Qualified Code(s): J96.01 - Acute respiratory failure with hypoxia Plan to address problem: Patient intubated/extubated. Patient alert, awake. Patient is on room air. Patient O2 saturation 97%. (2) Altered mental status Status: Acute Qualifiers: Altered mental status type: unspecified Qualified Code(s): R41.82 - Altered mental status, unspecified Plan to address problem: Management as per PCP and Neurology (3) Depression with suicidal ideation Status: Acute Plan to address problem: Strongly recommend to follow with Psychiatrist and follow their recommendations (4) Lactic acid acidosis Status: Acute Plan to address problem: Improved. Subjective Date of service: 01/03/21 Interval history: Patient admitted in an unresponsive state. patient intubated and extubated. Patient alert. Patient awake.Patient afebrile and vital signs stable. No acute respiratory distress. Objective Vital Signs - 12hr 01/03/21 01/03/21 01/03/21 10:00 12:08 16:56 Temperature 98.3 F 97.8 F Pulse Rate 74 67 Respiratory 20 16 18 Rate Blood Pressure 107/61 117/73 O2 Sat by Pulse 97 95 98 Oximetry Constitutional: no acute distress, alert Eyes: non-icteric ENT: oropharynx moist, other (orally intubated ETT at 23cm HANNA) Neck: supple, no lymphadenopathy Effort: normal Ascultation: Bilateral: diminished breath sounds Cardiovascular: regular rate and rhythm, other (S1,S2) Gastrointestinal: normoactive bowel sounds, soft, non-tender, non-distended Integumentary: normal Extremities: no cyanosis, no edema, pink and warm, pulses normal, no ischemia or petechiae Neurologic: normal mental status, non-focal exam, pupils equal and round, CN II- XII normal Psychiatric: mood appropriate, affect normal CBC and BMP: 01/01/21 05:31 01/01/21 05:31 ABG, PT/INR, D-dimer: ABG ABG pH 7.325 pH Units (7.350-7.450) L 12/30/20 22:00 ABG pCO2 48.4 mm Hg 12/30/20 22:00 ABG pO2 136.9 mm Hg (80.0-90.0) H 12/30/20 22:00 ABG O2 Saturation 98.5 % (95.0-99.0) 12/30/20 22:00 PT/INR, D-dimer PT 14.7 Sec. (12.2-14.9) 12/31/20 04:29 INR 1.04 (0.87-1.13) 12/31/20 04:29 Abnormal lab findings: Abnormal Labs 12/29/20 12/29/20 12/29/20 22:22 22:22 22:22 RDW 12.7 L Lymph % (Auto) 41.6 H [place] % (Auto) 8.2 H [place] # (Auto) ABG pH ABG pO2 ABG O2 Saturation ABG Base Excess ABG Hemoglobin Chloride BUN Glucose 149 H Lactic Acid 3.20 H* Total Creatine Kinase 235 H Salicylates Acetaminophen 12/29/20 12/29/20 12/29/20 22:22 22:22 23:45 RDW Lymph % (Auto) [place] % (Auto) [place] # (Auto) ABG pH 7.454 H ABG pO2 257.0 H ABG O2 Saturation 99.4 H ABG Base Excess -2.4 L ABG Hemoglobin 13.2 L Chloride BUN Glucose Lactic Acid Total Creatine Kinase Salicylates < 0.3 L Acetaminophen 5.0 L 12/29/20 12/30/20 12/30/20 23:46 03:33 04:05 RDW Lymph % (Auto) [place] % (Auto) [place] # (Auto) ABG pH 7.468 H ABG pO2 173.3 H ABG O2 Saturation 99.2 H ABG Base Excess -2.2 L ABG Hemoglobin Chloride BUN Glucose Lactic Acid 4.60 H* 3.20 H* Total Creatine Kinase Salicylates Acetaminophen 12/30/20 12/30/20 12/31/20 13:46 22:00 04:29 RDW 12.8 L Lymph % (Auto) [place] % (Auto) 10.8 H [place] # (Auto) 1.0 H ABG pH 7.325 L ABG pO2 145.0 H 136.9 H ABG O2 Saturation ABG Base Excess ABG Hemoglobin Chloride BUN Glucose Lactic Acid Total Creatine Kinase Salicylates Acetaminophen 12/31/20 01/01/21 01/01/21 04:29 05:31 05:31 RDW 12.3 L Lymph % (Auto) [place] % (Auto) [place] # (Auto) ABG pH ABG pO2 ABG O2 Saturation ABG Base Excess ABG Hemoglobin Chloride 107.1 H BUN 7 L Glucose 108 H Lactic Acid Total Creatine Kinase Salicylates Acetaminophen Chest x-ray: report reviewed, image reviewed Additional Studies: CHEST - 1 VIEW 0701 hours 12/31/20 INDICATION: follow up respiratory failure COMPARISON: Yesterday FINDINGS: Support devices: Stable support device positioning. Heart: Stable cardiomediastinal silhouette. Lungs/pleura: The lungs remain generally clear with no evidence for infiltrate, pleural fluid or pneumothorax. Additional findings: None. IMPRESSION: Unchanged exam. No acute process noted. Allied health notes reviewed: RT
[2021-01-04] MEDS: HEPARIN 5,000 UNIT/1 ML VIAL SUB-Q SCH ×2 (05:47→14:00)
[2021-01-04] MEDS: SODIUM CHLORIDE 0.9% 1000 ML 1,000 ML IV SCH (05:50)
[2021-01-04] MEDS: QUEtiapine 25 MG TAB PO SCH (10:18)
[2021-01-04] MEDS: SERTRALINE 25 MG TAB PO SCH (10:19)
[2021-01-04 12:58] VITALS: BP 125/77
--- NOTE | 2021-01-04 13:05 | Discharge Summary ---
Providers - Providers Date of Admission: 12/30/20 01:11 Date of discharge: 01/04/21 Attending physician: SEBASTIAN GUZMAN MD 12/29/20 23:31 Consult to Physician [CONS] Routine Comment: Consulting Provider: ARTIE GRAYSON Physician Instructions: Reason For Exam: icu pt, resp failure. 12/30/20 01:11 Consult to Dietitian/Nutrition [CONS] Routine Physician Instructions: Reason For Exam: Reason for Consult: Write/Manage Tube Feeding 12/30/20 01:20 Consult to Mental Health [CONS] Routine Reason For Exam: History of depression with suicidal ideation 12/30/20 14:54 Consult to Physician [CONS] Routine Comment: Consulting Provider: NIKKI DAILY Physician Instructions: Reason For Exam: Acute Encephalopathy Primary care physician: [facility] Hospitalization Reason for admission: Altered mental status Condition: Critical Pertinent studies: Reviewed. Procedures: Intubation. Hospital course: Patient is a 20-year-old -[place] male with past medical history of major depressive disorder who presented for unresponsiveness and altered mental status. The patient was given Narcan on route to the hospital and intubated prior to ED presentation. Due to concerns for intentional overdose, psychiatry was consulted. The patient was placed on a 1013 for further evaluation. The patient was safely extubated, and the 1013 was discontinued on 01/03/2021. The patient was safely discharged home. Disposition: 01 HOME / SELF CARE / HOMELESS Final Discharge Diagnosis (Prints w/discharge instructions): Toxic encephalopathy; acute hypoxic respiratory failure; major depressive disorder Time spent for discharge: 35 min Core Measure Documentation - Palliative Care Palliative Care/ Comfort Measures: Not Applicable - Core Measures Any of the following diagnoses?: none - VTE Discharge Requirements Deep Vein Thrombosis/Pulmonary Embolism Present on Admission: No Has pt received <5 days of overlap therapy or INR<2.0: No (Not applicable) Anticoagulant overlap therapy prescribed at discharge: No Contraindication No Overlap Therapy order at DC: Not Indicated - Acute VT Discharge Requirements Aspirin at discharge: No Reason for no aspirin on DC: Medical contraindication (Not indicated) AMINA/ARB for LVSD if EF <40%: Not Applicable Reason for no AMINA/ARB: Medical contraindication (Not indicated) Beta eric at discharge: No Reason for no beta eric on DC: Medical contraindication (Not indicated) Statin for LDL = or >100 mg/dl on DC: Not Applicable Reason for no statin on DC: Medical contraindication (Not indicated) - Heart Failure Discharge Requirements AMINA/ARB for LVSD if EF <40%: Not Applicable Reason for no AMINA/ARB: Medical contraindication (Not indicated) Beta eric at discharge: No Reason for no beta eric on DC: Medical contraindication (Not indicated) - Stroke Discharge Requirements Statin for LDL = or >70 mg/dl on DC: Not Applicable Reason for no statin on DC: Not Indicated Anticoag for atrial fib/atrial flutter: Not Applicable Reason for no anticoag for AF/F on DC: Not Indicated Antithrombotic for ischemic stroke: No Reason for no antithrombotic on DC: Not Indicated Exam - Constitutional Vitals: Temp Pulse Resp BP Pulse Ox 98.6 F 69 18 125/77 93 01/04/21 11:31 01/04/21 11:31 01/04/21 11:31 01/04/21 11:31 01/04/21 11:31 General appearance: Present: no acute distress, well-nourished - EENT Eyes: Present: PERRL, EOM intact ENT: hearing intact, clear oral mucosa, dentition normal - Neck Neck: Present: supple, normal ROM - Respiratory Respiratory effort: normal - Cardiovascular Rhythm: regular Heart Sounds: Present: S1 & S2 - Extremities Extremities: no ischemia, pulses intact, pulses symmetrical, No edema, normal temperature, normal color Peripheral Pulses: within normal limits - Abdominal General gastrointestinal: Present: soft, non-tender, non-distended, normal bowel sounds Male genitourinary: Present: deferred - Rectal Rectal Exam: deferred - Integumentary Integumentary: Present: clear, warm, dry - Musculoskeletal Musculoskeletal: strength equal bilaterally - Psychiatric Psychiatric: appropriate mood/affect, intact judgment & insight, memory intact, cooperative - Neurologic Neurologic: CNII-XII intact, moves all extremities - Allied Health Allied health notes reviewed: nursing Plan Care Plan Goals: Pt cleared by [facility]S [facility]. OP Resources placed in chart Professional and Agency Contacts To help [facility](09/10) [place] Crisis Line: Suicide Prevention Line: Crisis Text Line: Text START to [phone] Emergency: 911 Outpatient COMMUNITY Behavioral Health Resources: DEKALB: [facility] [address], [place] [address] DEX[place]: [facility] [address] [place] [address] ROX: [facility] - [address] [place] [address] Sunday thru Sunday - 8am - 5pm [facility]: [facility] Address: [address], [place] [address] IRIS: [facility] Address: [address] [place] [address] Sunday thru Sunday- 7am-2pm [facility] Address: [address] [place] [address] Sunday thru Sunday: 8:30AM-5PM Assessment: Patient evaluated and placed on 1013 pending psychiatric evaluation. Psych team patient does not require inpatient hospitalization. Patient will continue with psychiatric medications. Follow up with: PRIMARY CARE, [Primary Care Provider] - 7 Days Prescriptions: QUEtiapine [SEROquel] 25 mg PO BID 11 Days #60 tablet Sertraline [Zoloft] 25 mg PO QDAY #30 tablet
--- NOTE | 2021-01-05 14:33 | Electrocardiograph Report ---
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
== END 2021-01-04 15:06 | disposition home or self-care (01) | DRG 208 ==
LOC: ED 22:08 → CC1 12-30 01:11 → 3A 01-01 14:50
PROVIDERS: ADMIT Internal Medicine Geriatric Medicine; ATTEND Student in an Organized Health Care Education/Training Program
PROC: 5A1945Z Respiratory Ventilation, 24-96 Consecutive Hours (ICD-10-PCS; principal; 2020-12-29)
PROC: 0BH17EZ Insertion of Endotracheal Airway into Trachea, Via Natural or Artificial Opening (ICD-10-PCS; 2020-12-29)
PROC: 4A033R1 Measurement of Arterial Saturation, Peripheral, Percutaneous Approach (ICD-10-PCS; 2020-12-30)
DX: J96.01 Acute respiratory failure with hypoxia (principal); G92.8 Other toxic encephalopathy; E87.2 Acidosis; R45.851 Suicidal ideations; F32.A Depression, unspecified; R13.12 Dysphagia, oropharyngeal phase; Z20.822 Contact with and (suspected) exposure to COVID-19
CPT/HCPCS: 36415; 36600; 70450; 70553; 71045; 72141; 80048; 80053; 80307; 80320; 81001; 82140; 82550; 82607; 82747; 82803; 84443; 84484; 85025; 85027; 85610; 85730; 86592; 87040; 93005; 93306; 94002; 94003; 99406; G0378; A9575; G0480; J1644; J2060; J2250; J2704; J3010; J7030; J7050